=== PATIENT | female | born 1945 | race Caucasian/White ===

== ENCOUNTER 2018-07-22 20:11 | Emergency (ER) | payer MEDICARE ==
[2018-07-22] MEDS ORDERED: HYDROcodone/Acetaminophen 5/325 mg Tablet ONE (20:45)
--- NOTE | 2018-07-22 22:57 | ULT ---
RIGHT LOWER EXTREMITY VENOUS DOPPLER WITH SPECTRAL ANALYSIS AND COLOR FLOW EVALUATION 07/22/18 HISTORY: Right lower extremity pain. FINDINGS: Ma scale, color flow, doppler evaluation and spectral analysis of the right lower extremity venous structures is performed with 2D imaging. The right lower extremity common femoral, superficial femora l, popliteal, posterior tibial, and most proximal greater saphenous and profunda femoral veins are im aged. There is normal lumen compressibility, flow and augmentation in the visualized deep venous stru ctures of the right lower extremity. IMPRESSION: No evidence of a DVT involving the visualized deep venous structures right lower extremity. POS: [facility]
== END 2018-07-23 00:30 ==
LOC: ERS 20:11
DX: M79.604 Pain in right leg (principal); M19.90 Unspecified osteoarthritis, unspecified site; K21.9 Gastro-esophageal reflux disease without esophagitis; E78.5 Hyperlipidemia, unspecified; F32.9 Major depressive disorder, single episode, unspecified; E03.9 Hypothyroidism, unspecified; I10 Essential (primary) hypertension; Z86.73 Personal history of transient ischemic attack (TIA), and cerebral infarction without residual deficits; Z79.899 Other long term (current) drug therapy; Z79.82 Long term (current) use of aspirin

== ENCOUNTER 2018-08-26 13:02 | Outpatient (CLI) | payer MEDICARE ==
--- NOTE | 2018-08-26 15:21 | MRI ---
MRI LUMBAR SPINE WITHOUT CONTRAST: HISTORY: Acute right-sided low back pain. Sciatica. COMPARISON: None. TECHNIQUE: MRI lumbar spine is performed without intravenous Gadolinium administration. Multisequential, multip lanar imaging is performed. FINDINGS: 2.3 mm of anterolisthesis of L1 upon L2. There is no significant STIR hyperintensity to suggest vert ebral body edema or ligamentous injury. There is appropriate T1 marrow signal intensity of the lumba r vertebrae. No evidence of fracture. There are type II Modic changes at L5-S1. Appropriate signal intensity of the psoas muscles and solid organs. Conus medullaris terminates at the mid T12 level. T12-L1: Central disk protrusion. Moderate central canal stenosis. Right neural foramen is patent. Mild left foraminal narrowing. L1-L2: Adequate disk hydration. Generalized disk bulge, ligamentum flavum thickening, and facet hyp ertrophy result in mild central canal stenosis. Neural foramen are patent. L2-L3: Moderate loss of disk space height. Broad-based disk bulge, ligamentum flavum thickening, an d facet hypertrophy result in mild to moderate central canal stenosis. Mild to moderate right and mo derate left foraminal narrowing. L3-L4: Desiccation with mild loss of disk space height. Broad-based disk bulge does not cause any s ignificant central canal stenosis. There is bilateral facet hypertrophy. Mild bilateral foraminal n arrowing. L4-L5: Desiccation with moderate loss of disk space height. There is a broad-based disk bulge witho ut any significant stenosis of the thecal sac. Narrowing of both subarticular zones, left greater th an right. There is mass effect without obscuration of traversing left L5 nerve root. Bilateral face t hypertrophy. Moderate bilateral neural foraminal narrowing. L5-S1: Severe loss of disk space height. Generalized disk bulge with mild stenosis of the thecal sa c. Narrowing of both subarticular zones secondary to disk material and posterior element hypertrophy . There is mass effect without obscuration of either traversing S1 nerve root. Moderate bilateral f oraminal narrowing. IMPRESSION: Degenerative changes of the lumbar spine as above. POS: [facility]
== END 2018-08-26 13:03 | disposition home or self-care (01) ==
LOC: BICMRI 13:02
PROVIDERS: ATTEND Family Medicine
DX: M54.41 Lumbago with sciatica, right side (principal); M47.816 Spondylosis without myelopathy or radiculopathy, lumbar region
CPT/HCPCS: 72148

== ENCOUNTER 2018-09-07 16:58 | Observation (INO) | payer MEDICARE ==
[2018-09-07 17:46] LABS: #Lymphocytes 2.3 thou/uL (1.20-3.40); #Monocytes 1.4 thou/uL (0.11-0.59); %Basophils 0.3 % (0.0-1.0); %Eosinophils 0.5 % (0.0-10.0); %Lymphocytes 21.6 % (21.0-51.0); %Monocytes 12.5 % (0.0-10.0); %Neutrophils 65.1 % (42.0-75.0); Mean Corpuscular HGB CONC 31.9 g/dL (32.0-36.0); Mean Corpuscular Hemoglobin 31.9 pg (27.0-31.0); Mean Corpuscular Volume 99.8 fL (78.0-98.0); Mean Platelet Volume 7.2 fL (7.4-10.4); Platelet Count 341 thou/uL (130-400); RBC Distribution Width 12.2 % (11.5-14.5); Red Blood Cell (RBC) Count 3.75 mill/uL (4.20-5.40); White Blood Cell (WBC) Count 10.8 thou/uL (4.8-10.8)
[2018-09-07 18:01] LABS: Bilirubin Negative (Negative); Blood, Urine Negative (Negative); Clarity CLOUDY (Clear); Glucose, Urine (Dipstick) Negative (Negative); Leukocyte Small (Negative); Nitrite Negative (Negative); Protein, Urine (Dipstick) Trace mg/dL (Neg-Trace); Specific Gravity, Urine 1.021 (1.002-1.036)
[2018-09-07 18:03] LABS: Pathc Cast-AUWi Flag 0.85 (0-2.49); Squamous Epithelial None Seen HPF (0-3); WBC/HPF 21-50 HPF (0-3)
[2018-09-07 18:05] LABS: Yeast-AUWi Flag 82.4 (0-25.0)
[2018-09-07 18:07] LABS: ALT (SGPT) 11 U/L (8-55); AST (SGOT) 13 U/L (5-34); Albumin 3.8 g/dL (3.4-4.8); Alkaline Phosphatase 102 U/L (40-150); Anion Gap 15 mmol/L (10-20); BUN (Urea Nitrogen) 9 mg/dL (9.8-20.1); Bilirubin, Total 0.3 mg/dL (0.2-1.2); CRP (Inflammatory) 7.45 mg/dL (= or < 0.5); Calc. Creatinine Clearance 0 mL/min (70-130); Calcium 9.2 mg/dL (7.8-10.44); Carbon Dioxide 26 mmol/L (23-31); Chloride 103 mmol/L (98-107); Estimated GFR-MDRD 84; Glucose 78 mg/dL (83-110); Potassium 3.1 mmol/L (3.5-5.1); Protein, Total 7.8 g/dL (6.0-8.3); Sodium 141 mmol/L (136-145)
[2018-09-07 18:14] LABS: Bacteria/HPF 3+ HPF (None Seen); Hyaline Casts/LPF NONE SEEN LPF (0-3 Hyaline); RBC/HPF None Seen HPF (0-3); Yeast-All Forms None Seen HPF (None Seen)
[2018-09-07] MEDS ORDERED: Lidocaine 1% w/Epinephrine 1:100K 20 ML VIAL ONE (18:35)
--- NOTE | 2018-09-07 18:49 | RAD ---
FOUR VIEWS RIGHT KNEE: 09/07/18 HISTORY: Pain. Symptoms are worsening. COMPARISON: None. FINDINGS: There is a suprapatellar effusion. Joint spaces appear to be preserved. There is a lucency involving the proximal tibia. Questionable irregularity involving the lateral tibial plateau. Possibility of a nondisplaced fracture cannot be excluded. There does also appear to be some sclerosis along the media l tibial plateau further supporting this supposition. IMPRESSION: Possible injury involving the proximal tibia. MRI is recommended. POS: [facility]
[2018-09-07] MEDS ORDERED: Phenazopyridine HCl 97.5 MG TABLET PO SCH (19:30)
[2018-09-07] MEDS ORDERED: Sodium Chloride 0.9% 100 ML ONE (19:32)
[2018-09-07] MEDS ORDERED: cefTRIAXone\\ROCEPHIN 2 GM VIAL ONE (19:32)
[2018-09-07 20:33] LABS: BF Color Yellow; Body Fluid Source Synovial Fluid; Clarity Hazy (Clear); RBC Count-Automated 14000 /cumm; Tube # 1; WBC/NonHematic-Auto 5540 /cumm
[2018-09-07] MEDS ORDERED: Acetaminophen 325 MG TAB ONE (20:53)
[2018-09-07 21:16] LABS: BF Segmented Neutrophils 78 %; Cell Count Non Hematic 18 %; Lymphocytes 4 %
[2018-09-07] MEDS ORDERED: Loperamide HCl 2 MG CAP PO PRN (23:27)
[2018-09-07] MEDS ORDERED: Senokot S 8.6-50 MG TAB PO PRN (23:27)
[2018-09-07] MEDS ORDERED: Ondansetron ODT 4 MG TAB PO PRN (23:27)
[2018-09-07] MEDS ORDERED: Diabetic Tussin 200 MG/10 ML UDCUP PO PRN (23:27)
[2018-09-07] MEDS ORDERED: Artificial Tears 18 DROP/0.9 ML EA EYE PRN (23:27)
[2018-09-07] MEDS ORDERED: Zolpidem Tartrate 5 MG TAB PO PRN (23:27)
[2018-09-07] MEDS ORDERED: Sodium Chloride 0.65% Nasal 44 ML BOT EA NARE PRN (23:27)
[2018-09-07] MEDS ORDERED: Calcium Carbonate 500 MG ChewTAB PO PRN (23:27)
[2018-09-07] MEDS ORDERED: Bisacodyl 10 MG SUPP PR PRN (23:27)
[2018-09-07] MEDS ORDERED: Ondansetron PF 4 MG/2 ML Vial IVP PRN (23:27)
[2018-09-07] MEDS ORDERED: Eucerin (Mineral Oil/Petrolatum,White) 30 gm Jar TOP PRN (23:27)
[2018-09-07] MEDS ORDERED: Cepastat Lozenges 1 LOZ PO PRN (23:27)
[2018-09-07] MEDS ORDERED: Loratadine 10 MG TAB PO PRN (23:27)
[2018-09-07] MEDS ORDERED: hydrALAZINE 20 MG/ML VIAL SLOW IVP PRN (23:27)
[2018-09-08] MEDS: Sodium Chloride 0.9% 1,000 ML IV SCH ×3 (00:28→20:03)
[2018-09-08] MEDS: HYDROcodone/Acetaminophen 5/325 mg Tablet PO PRN ×4 (00:33→21:21)
[2018-09-08] MEDS ORDERED: Potassium Chloride 20 MEQ TAB PO SCH (00:45)
[2018-09-08 00:50] VITALS: BMI 22.4
[2018-09-08] MEDS: Acetaminophen 325 MG TAB PO PRN (02:05)
--- NOTE | 2018-09-08 02:11 | HP ---
PRIMARY CARE PHYSICIAN: Dr. Jeimy Mccormick. REASON FOR ADMISSION: Right knee pain, urinary tract infection. HISTORY OF PRESENT ILLNESS: A 73-year-old female, who lives alone at home. She was having right knee pain since Wednesday. The patient was having difficulty walking. Pain was gradually getting worse. Her intensity of pain was about 8/10. The patient denies any trauma. The patient was having subjective warm feeling, but she did not measure temperature. She was feeling her knee was hot and tender. The patient was trying some pain medications without any improvement and that is why finally with the help of neighbor, the patient decided to go to emergency room. In the emergency room, the patient had right knee arthrocentesis and fluid was removed. In the emergency room, the patient was having T maximum of 101. The patient did not have any UTI symptoms, though her urinalysis was consistent with UTI. The patient was given Rocephin 2 g, pyridium, and Tylenol, and subsequently, she is admitted to medical floor. The patient had an x-ray which showed some abnormality over proximal tibia, and MRI was recommended. REVIEW OF SYSTEMS: CONSTITUTIONAL: Negative for weight loss or gain, ability to conduct usual activities. SKIN: Negative for rash, itching. EYES: Negative for double vision, pain. ENT/MOUTH: Negative for nose bleeding, neck stiffness, pain, tenderness. CARDIOVASCULAR: Negative for palpitations, dyspnea on exertion, orthopnea. RESPIRATORY: Negative for shortness of breath, wheezing, cough, hemoptysis, fever or night sweats. GASTROINTESTINAL: Negative for poor appetite, abdominal pain, heartburn, nausea, vomiting, constipation, or diarrhea. GENITOURINARY: Negative for urgency, frequency, dysuria, nocturia. MUSCULOSKELETAL: Negative for pain, swelling. NEUROLOGIC/PSYCHIATRIC: Negative for anxiety, depression. ALLERGY/IMMUNOLOGIC: Negative for skin rash, bleeding tendency. Please see my HPI for pertinent positives and negatives. All other review of systems reviewed and negative except as mentioned in HPI. PAST MEDICAL HISTORY: Osteoarthritis, peripheral neuropathy, history of CVA/TIA, hypothyroidism, hypertension, gastroesophageal reflux disease, and dyslipidemia. PAST SURGICAL HISTORY: Right femur surgery, back surgery. PAST PSYCHIATRIC HISTORY: Anxiety and depression. SOCIAL HISTORY: The patient lives at [facility]. No history of tobacco, alcohol, or illicit drug abuse. FAMILY HISTORY: Positive for cancer, but no family history of coronary artery disease or stroke. ALLERGIES: NO KNOWN DRUG ALLERGIES. CURRENT HOME MEDICATIONS: 1. Lovastatin 40 mg p.o. q.h.s. 2. Metoprolol succinate 25 mg p.o. daily. 3. Nifedipine 90 mg daily. 4. Gabapentin 600 mg three times daily. 5. Plavix 75 mg daily. 6. Paxil 40 mg daily. 7. Aspirin 81 mg daily. 8. Lisinopril 20 mg twice daily. 9. Vitamin B complex one capsule daily. 10. Tylenol No.3 one tablet q.8 hourly p.r.n. 11. Flexeril 5 mg at bedtime. 12. Iron one tablet daily. 13. Clonidine 0.1 mg p.r.n. for blood pressure more than 160. EMERGENCY ROOM COURSE: The patient is given Tylenol, Pyridium, and Rocephin 2 g. PHYSICAL EXAMINATION: VITAL SIGNS: On arrival, temperature 101, pulse 89, blood pressure 180/82, saturation 97% on room air. Weight 64 kg. GENERAL: The patient is currently alert, awake, no obvious acute distress. HEENT: Head; normocephalic and atraumatic. Eyes; pupils are round and reactive to light. Extraocular muscles are intact. ENT: Oropharynx within normal limits. Moist mucous membranes. No oral lesion. No pharyngeal erythema. No exudate. NECK: Supple. No JVD. No thyromegaly. No carotid bruit. LUNGS: Clear to auscultation without any rhonchi or rales. CARDIAC: S1 and S2 regular. No murmur. No gallop. No rub. ABDOMEN: Soft. Bowel sounds present. Nontender. Nondistended. No organomegaly. No mass. No suprapubic tenderness. BACK: Unremarkable. No CVA tenderness. EXTREMITIES: Upper extremities; passive movement of all joints are normal. Lower extremities, right knee effusion noted, right knee swollen and tenderness with warmth noted, no erythema. Distal pulsations are intact. NEUROLOGIC: Nonfocal examination. SKIN: No skin rash. HEMATOLOGICAL: No lymphadenopathy. SIGNIFICANT LABORATORY DATA: X-ray knee showing suprapatellar effusion, joint space normal, lucency in proximal tibia. CBC; WBC 10.8, hemoglobin 12.0, platelet 341. BMP; sodium 141, potassium 3.1, chloride 103, carbon dioxide 26, anion gap 15, BUN 9, creatinine 0.69, glucose 78, calcium 9.2. LFT; AST 13, ALT 11, alkaline phosphatase 102, albumin 3.8. CRP 7.45. Urinalysis, leukocyte esterase small, and bacteria 3+. Synovial fluid; WBC count 5540, RBC 14,000, neutrophil percent is 78%. ASSESSMENT AND PLAN: 1. Acute right knee pain with right knee effusion, status post knee arthrocentesis, synovial fluid. WBC count 5540 with CRP 7.45, consistent with inflammatory process, less likely infectious etiology given intensity of WBC count, but given fever, we need to exclude that possibility. Orthopedic will be consulted for their opinion. We will follow up on crystal result. At this point, empirically I will start Toradol 15 mg IV q.6 hourly p.r.n. for pain and colchicine 0.6 mg twice daily. At the same time, the patient will be kept on Rocephin 2 g IV daily. We will follow up on culture result. The patient also has associated abnormality on x-ray over tibia and that is why Orthopedics will give opinion about that. If needed, we will obtain MRI of the knee. 2. Urinary tract infection. The patient will be given Rocephin 2 g and will follow up on urine culture results. 3. Hypokalemia. We will replace potassium with potassium 40 mEq p.o. one time dose. 4. The patient has underlying chronic problem of hypertension, dyslipidemia, peripheral neuropathy, coronary artery disease, history of CVA. All problems are stable at this point, and after verification of patient's home medication, we will resume all home medication. 5. DVT prophylaxis. Not needed because we are expecting discharge soon. 6. Gastrointestinal prophylaxis. Pepcid 20 mg p.o. b.i.d. 7. Code status. The patient is full code. DISPOSITION PLAN: Based on clinical course and orthopedic recommendation. Job ID: [id number]
[2018-09-08 07:56] LABS: #Lymphocytes 1.7 thou/uL (1.20-3.40); #Monocytes 1.1 thou/uL (0.11-0.59); #Neutrophils 5.6 thou/uL (1.40-6.50); %Basophils 0.4 % (0.0-1.0); %Eosinophils 0.6 % (0.0-10.0); %Lymphocytes 19.7 % (21.0-51.0); %Neutrophils 66.4 % (42.0-75.0); Hemoglobin 11.4 g/dL (12.0-16.0); Mean Corpuscular HGB CONC 32.5 g/dL (32.0-36.0); Mean Corpuscular Hemoglobin 32.1 pg (27.0-31.0); Mean Corpuscular Volume 98.8 fL (78.0-98.0); Mean Platelet Volume 7.3 fL (7.4-10.4); Platelet Count 308 thou/uL (130-400); Red Blood Cell (RBC) Count 3.55 mill/uL (4.20-5.40); White Blood Cell (WBC) Count 8.4 thou/uL (4.8-10.8)
[2018-09-08] MEDS: Famotidine 20 MG TAB PO SCH ×2 (08:03→20:03)
[2018-09-08] MEDS: NIFEdipine XL 90 MG TAB PO SCH (08:03)
[2018-09-08] MEDS: Colchicine 0.6 MG TAB PO SCH ×2 (08:03→20:03)
[2018-09-08] MEDS: Stress 600 With Zinc 1 TAB PO SCH (08:04)
[2018-09-08] MEDS: Gabapentin 300 MG CAP PO SCH ×3 (08:05→20:03)
[2018-09-08] MEDS: Lisinopril 20 MG TAB PO SCH ×2 (08:05→20:03)
[2018-09-08] MEDS: Aspirin 81 mg Enteric Coated Tablet PO SCH (08:05)
[2018-09-08] MEDS: Ketorolac Tromethamine 30 MG/ML VIAL IVP PRN ×3 (08:06→20:07)
[2018-09-08] MEDS: Clopidogrel Bisulfate 75 MG TAB PO SCH (08:06)
[2018-09-08] MEDS: Atorvastatin Calcium 10 MG TAB PO SCH (08:06)
[2018-09-08] MEDS: PARoxetine 20 MG TAB PO SCH (08:06)
[2018-09-08 08:19] LABS: ALT (SGPT) 8 U/L (8-55); AST (SGOT) 11 U/L (5-34); Albumin 3.4 g/dL (3.4-4.8); Alkaline Phosphatase 86 U/L (40-150); Anion Gap 14 mmol/L (10-20); BUN (Urea Nitrogen) 7 mg/dL (9.8-20.1); Bilirubin, Total 0.4 mg/dL (0.2-1.2); Calc. Creatinine Clearance 84 mL/min (70-130); Carbon Dioxide 24 mmol/L (23-31); Chloride 106 mmol/L (98-107); Estimated GFR-MDRD Greater than 90; Globulin 3.4 g/dL (2.4-3.5); Glucose 107 mg/dL (83-110); Potassium 3.2 mmol/L (3.5-5.1); Protein, Total 6.8 g/dL (6.0-8.3); Sodium 141 mmol/L (136-145)
[2018-09-08] MEDS ORDERED: VITAMIN B COMPLEX PO SCH (09:00)
[2018-09-08] MEDS ORDERED: Non-Formulary Item 1 EACH (Lovastatin [Lovastatin] 40 MG) PO SCH (09:00)
--- NOTE | 2018-09-08 10:11 | CON ---
DATE OF CONSULTATION: CHIEF COMPLAINT: Right knee pain. HISTORY OF PRESENT ILLNESS: Ms. Pedraza is a 73-year-old female who lives in a nursing facility. She reports that over the last 2 to 3 days, she began having increasing knee pain. Her knee pain became severe yesterday. She was transferred from her facility to the emergency department. She was found to have a large effusion of the knee. She had a knee aspirate. This aspirate was sent for cell count, which show 5000 white blood cells. Crystal analysis is pending. She also has been diagnosed with urinary tract infection. She has been started on intravenous antibiotics. She has been admitted to the hospital. She denies any fall or trauma to the knee. REVIEW OF SYSTEMS: Positive for right knee pain. The patient is uncomfortable lying in bed. Otherwise, negative review of systems. PAST MEDICAL HISTORY: Osteoarthritis, peripheral neuropathy, history of CVA, hypothyroidism, hypertension, GERD, hyperlipidemia. PAST SURGICAL HISTORY: Previous lumbar back surgery as well as right femur fracture surgery. PSYCHIATRIC HISTORY: Anxiety, depression, and dementia. SOCIAL HISTORY: The patient lives in [place] at an assisted living facility. No tobacco, alcohol, or drug use. FAMILY MEDICAL HISTORY: Noncontributory. ALLERGIES: NO KNOWN DRUG ALLERGIES. PHYSICAL EXAMINATION: VITAL SIGNS: Temperature 98.8, pulse is 86, respiratory rate 16, oxygen saturation 96%, and blood pressure is 169/80. GENERAL: She is lying supine. She is uncomfortable at rest. HEENT: Normocephalic, atraumatic. RESPIRATORY: The patient is breathing comfortably. MUSCULOSKELETAL: The right lower extremity has a large effusion of the right knee. She has pain with motion. There is increased warmth to touch. No erythema. Skin is intact. No evidence of trauma. No ecchymosis. She is able to flex and extend the foot and ankle. IMAGES: X-rays of the right knee demonstrate some evidence of osteopenia with a somewhat mottled appearance to the bone. There is a possible lateral tibial plateau occult fracture, although this is poorly visualized. She has mild osteoarthritis and calcification of the meniscus. IMPRESSION: Inflammatory process of right knee. PLAN: At this point, it does not appear that the patient has an infection given that her white blood cell count of the synovial fluid was only 5000. Crystal analysis is pending, this could represent a gout flare. I would like to order a CT scan of the knee to evaluate for lateral tibial plateau insufficiency type fracture. I do not think she will be able to tolerate an MRI well given her dementia as well as discomfort. We will follow up on CT scan as well as crystal analysis. She can mobilize as tolerated on the knee for now. Job ID: [id number]
--- NOTE | 2018-09-08 10:25 | CT ---
CT RIGHT KNEE WITHOUT CONTRAST: HISTORY: Questionable fracture. COMPARISON: None. FINDINGS: There is a large suprapatellar joint effusion. There is chondrocalcinosis of the medial and lateral menisci. Bones are severely demineralized, especially around the periarticular region of the femoral condyles and the tibial plateaus. There is a nondisplaced sagittal split fracture of the lateral tibial plate au actually best seen on the axial image 64 only involving the epiphysis above the physeal scar. No other fracture is appreciated. Mild tricompartmental joint space narrowing on these [id number] aring images. Moderate vascular calcifications. IMPRESSION: Nondisplaced sagittal split fracture of the lateral tibial plateau involving approximately 50% of the articular surface axial image 64 which ends at the physeal scar. No significant articular surface d epression. POS: [facility]
[2018-09-08] MEDS: Acetaminophen/Codeine 30-300mg Tablet PO PRN (10:50)
--- NOTE | 2018-09-08 12:12 | PDOC.PN ---
- Subjective Encounter Start Date: 09/08/18 Encounter Start Time: 12:07 Patient seen and examined, states her right knee pain is improved, no other issues. All questions answered, no family at bedside. - Objective Resuscitation Status - Order Detail: 09/07/18 22:05 Resuscitation Status Routine Resuscitation Status: FULL: Full Resuscitation Vital Signs & Weight: Vital Signs (12 hours) Temp Pulse Resp BP BP Pulse Ox 09/08/18 08:03 86 09/08/18 07:27 98.8 F 86 16 169/80 H 96 09/08/18 05:15 98.3 F 86 16 161/72 H 96 Weight Weight 139 lb 3.2 oz I&O: 09/07/18 09/08/18 09/09/18 06:59 06:59 06:59 Intake Total 1050 Balance 1050 Result Diagrams: 09/08/18 07:39 09/08/18 07:38 Phys Exam - Physical Examination Constitutional: NAD HEENT: PERRLA, moist MMs, sclera anicteric Neck: no nodes, no JVD, supple Respiratory: no wheezing, no rales, no rhonchi Cardiovascular: RRR, no significant murmur, no rub Gastrointestinal: soft, non-tender, no distention Musculoskeletal: no edema, pulses present right knee joint swollen Dx/Plan (1) Inflammatory arthritis Code(s): M19.90 - UNSPECIFIED OSTEOARTHRITIS, UNSPECIFIED SITE Status: Acute (2) Swelling of right knee joint Code(s): M25.461 - EFFUSION, RIGHT KNEE Status: Acute (3) Hypertension Code(s): I10 - ESSENTIAL (PRIMARY) HYPERTENSION Status: Acute - Plan * given 5000 WBC count, likely inflammatory joint effusion, patient also had tripped and fell and had trauma to the site * nondisplaced tibial plateau fracture * ortho evaluation pending, will likely immobilize joint for a fixed time period ? * synovial fluid analysis pending * monitor for now * DC plans in AM with antiinflammatories if work up negative and if ok with ortho * case and plan d/w patient at length, she understood and agreed with this plan.
[2018-09-08] MEDS ORDERED: cefTRIAXone\\ROCEPHIN 2 GM in Sodium Chloride 0.9% 100 ML IVPB SCH (19:00)
[2018-09-08] MEDS ORDERED: Cyclobenzaprine 10 MG TAB PO SCH (21:00)
[2018-09-09] MEDS: HYDROcodone/Acetaminophen 5/325 mg Tablet PO PRN ×2 (05:30→14:58)
[2018-09-09] MEDS: Sodium Chloride 0.9% 1,000 ML IV SCH (05:30)
[2018-09-09 06:57] LABS: #Eosinphils 0.1 thou/uL (0.0-0.7); #Lymphocytes 1.5 thou/uL (1.20-3.40); #Monocytes 0.9 thou/uL (0.11-0.59); #Neutrophils 6.4 thou/uL (1.40-6.50); %Basophils 0.5 % (0.0-1.0); %Eosinophils 1.2 % (0.0-10.0); %Lymphocytes 16.8 % (21.0-51.0); %Monocytes 9.5 % (0.0-10.0); %Neutrophils 71.9 % (42.0-75.0); Hemoglobin 11.1 g/dL (12.0-16.0); Mean Corpuscular Hemoglobin 32.8 pg (27.0-31.0); Mean Corpuscular Volume 99.7 fL (78.0-98.0); Mean Platelet Volume 7.5 fL (7.4-10.4); Platelet Count 280 thou/uL (130-400); Red Blood Cell (RBC) Count 3.39 mill/uL (4.20-5.40); White Blood Cell (WBC) Count 8.9 thou/uL (4.8-10.8)
[2018-09-09 07:10] LABS: Anion Gap 13 mmol/L (10-20); BUN (Urea Nitrogen) 9 mg/dL (9.8-20.1); Calc. Creatinine Clearance 92 mL/min (70-130); Calcium 8.9 mg/dL (7.8-10.44); Carbon Dioxide 22 mmol/L (23-31); Chloride 108 mmol/L (98-107); Estimated GFR-MDRD Greater than 90; Glucose 100 mg/dL (83-110); Potassium 3.2 mmol/L (3.5-5.1); Sodium 140 mmol/L (136-145); Uric Acid 3.8 mg/dL (2.6-6.0)
[2018-09-09] MEDS: Colchicine 0.6 MG TAB PO SCH (08:50)
[2018-09-09] MEDS: Atorvastatin Calcium 10 MG TAB PO SCH (08:50)
[2018-09-09] MEDS: Lisinopril 20 MG TAB PO SCH (08:50)
[2018-09-09] MEDS: PARoxetine 20 MG TAB PO SCH (08:51)
[2018-09-09] MEDS: Gabapentin 300 MG CAP PO SCH ×2 (08:51→14:59)
[2018-09-09] MEDS: Famotidine 20 MG TAB PO SCH (08:51)
[2018-09-09] MEDS: Acetaminophen/Codeine 30-300mg Tablet PO PRN (08:52)
[2018-09-09] MEDS: Aspirin 81 mg Enteric Coated Tablet PO SCH (08:52)
[2018-09-09] MEDS: Clopidogrel Bisulfate 75 MG TAB PO SCH (08:52)
[2018-09-09] MEDS: Ketorolac Tromethamine 30 MG/ML VIAL IVP PRN (08:54)
[2018-09-09] MEDS: Stress 600 With Zinc 1 TAB PO SCH (09:43)
[2018-09-09] MEDS: NIFEdipine XL 90 MG TAB PO SCH (09:59)
[2018-09-09 11:59] VITALS: BP 166/85; TEMP 97.3
--- NOTE | 2018-09-09 13:07 | PDOC.EVN ---
Event Note - Event Note Event Note: DC SUMMARY #[id number]
[2018-09-09] MEDS: Acetaminophen 325 MG TAB PO PRN (14:59)
--- NOTE | 2018-09-09 15:09 | DIS ---
DATE OF ADMISSION: 09/07/2018 DATE OF DISCHARGE: 09/09/2018 ADMITTING DIAGNOSES: 1. Right knee effusion as well as pain. 2. Hypertension. 3. Arthritis. DISCHARGE DIAGNOSES: 1. Right knee effusions secondary to trauma. 2. Asymptomatic bacteriuria. 3. Arthritis. HOSPITAL COURSE: This is a 73-year-old female, who was stating that she is having difficulty walking because of the right knee pain. The patient stated that about four days ago she did have a fall and injury to the knee and has noted to have pain after that incident. The patient was admitted to Internal Medicine Team, had a joint fluid analysis done, effusion was tapped. Synovial fluid analysis did not show any crystals, did not show elevated uric acid levels. White blood cell count was around 5000. No inflammatory markers were noted to be elevated. The patient was diagnosed with traumatic effusion given antibiotics for a course of three days in the hospital for her UTI as well at the point in time of discharge, the patient was given a knee immobilizer by Orthopedic surgery. She is to follow up with PCP as well as with Orthopedic Surgery within 1 to 2 weeks. Lab work was stable. The patient denied any nausea, vomiting, diarrhea, constipation, chest pain, fevers, or shortness of breath. Symptomatically improved, able to tolerate ambulation as well. DISPOSITION: Home. FOLLOWUP: Follow up with PCP and Orthopedic Surgery within 1 to 2 weeks. DIET: Low-fat, low-calorie, high fiber diet. MEDICATIONS: See MAR. CONDITION: Stable. PROGNOSIS: Good. Case and plan discussed with the patient at length. She understood and agreed with this plan. Job ID: [id number]
== END 2018-09-09 15:32 | disposition home or self-care (01) ==
LOC: ERS 16:58 → T4-A 21:45
PROVIDERS: ADMIT Internal Medicine; ATTEND Internal Medicine
DX: S82.144A Nondisplaced bicondylar fracture of right tibia, initial encounter for closed fracture (principal); M25.461 Effusion, right knee; N39.0 Urinary tract infection, site not specified; M17.11 Unilateral primary osteoarthritis, right knee; M85.88 Other specified disorders of bone density and structure, other site; G62.9 Polyneuropathy, unspecified; I10 Essential (primary) hypertension; I25.10 Atherosclerotic heart disease of native coronary artery without angina pectoris; E78.5 Hyperlipidemia, unspecified; E03.9 Hypothyroidism, unspecified; E87.6 Hypokalemia; F41.9 Anxiety disorder, unspecified; F32.9 Major depressive disorder, single episode, unspecified; F03.90 Unspecified dementia, unspecified severity, without behavioral disturbance, psychotic disturbance, mood disturbance, and anxiety; K21.9 Gastro-esophageal reflux disease without esophagitis; Z86.73 Personal history of transient ischemic attack (TIA), and cerebral infarction without residual deficits; Z79.02 Long term (current) use of antithrombotics/antiplatelets; Z79.82 Long term (current) use of aspirin; Z79.2 Long term (current) use of antibiotics; Z79.899 Other long term (current) drug therapy; Z98.890 Other specified postprocedural states; W19.XXXA Unspecified fall, initial encounter
CPT/HCPCS: 51701; 73564; 73700; 80048; 80053 ×2; 84550; 84560; 85025 ×3; 85652; 86140; 87040; 87070; 87077; 87086; 87205; 89051; 89060; 96361 ×2; 96365; 96366; 96375; 96376 ×2; 99285; G0378 ×2; 36415; 81003; 81015; 85060; A4353; J0696; J1885; J2001; J7050

== ENCOUNTER 2018-09-14 12:51 | Inpatient (IN) | payer MEDICARE ==
[2018-09-14] MEDS ORDERED: Morphine 4 MG/ML VIAL ONE ×3 (14:19→17:13)
--- NOTE | 2018-09-14 14:35 | RAD ---
PORTABLE CHEST ONE VIEW: Date: 09-14-18 Time: 2:15 p.m. History: Right leg swelling. Comparison: 08-06-18 FINDINGS: The heart size is normal. The lungs are well expanded without focal areas of consolidation, pneumotho races or pleural effusions. IMPRESSION: No evidence of acute process. POS: [facility]
[2018-09-14 14:45] LABS: #Eosinphils 0.1 thou/uL (0.0-0.7); #Lymphocytes 2.2 thou/uL (1.20-3.40); #Monocytes 1.2 thou/uL (0.11-0.59); #Neutrophils 8.4 thou/uL (1.40-6.50); %Basophils 0.4 % (0.0-1.0); %Eosinophils 0.7 % (0.0-10.0); %Lymphocytes 18.5 % (21.0-51.0); %Monocytes 10.1 % (0.0-10.0); %Neutrophils 70.2 % (42.0-75.0); Hemoglobin 11.5 g/dL (12.0-16.0); Mean Corpuscular HGB CONC 33.1 g/dL (32.0-36.0); Mean Corpuscular Hemoglobin 32.1 pg (27.0-31.0); Mean Corpuscular Volume 96.9 fL (78.0-98.0); Mean Platelet Volume 6.9 fL (7.4-10.4); Platelet Count 427 thou/uL (130-400); Red Blood Cell (RBC) Count 3.57 mill/uL (4.20-5.40)
[2018-09-14 14:59] LABS: ALT (SGPT) 17 U/L (8-55); AST (SGOT) 23 U/L (5-34); Albumin 3.7 g/dL (3.4-4.8); Alkaline Phosphatase 102 U/L (40-150); Anion Gap 13 mmol/L (10-20); BUN (Urea Nitrogen) 10 mg/dL (9.8-20.1); Bilirubin, Total 0.3 mg/dL (0.2-1.2); Calc. Creatinine Clearance 0 mL/min (70-130); Calcium 9.6 mg/dL (7.8-10.44); Carbon Dioxide 27 mmol/L (23-31); Chloride 105 mmol/L (98-107); Estimated GFR-MDRD Greater than 90; Globulin 3.8 g/dL (2.4-3.5); Glucose 89 mg/dL (83-110); Potassium 3.3 mmol/L (3.5-5.1); Protein, Total 7.5 g/dL (6.0-8.3); Sodium 142 mmol/L (136-145)
--- NOTE | 2018-09-14 16:16 | ULT ---
RIGHT LOWER EXTREMITY VENOUS DUPLEX EXAM: 09/14/18 HISTORY: Right lower extremity pain and swelling. History of a fracture involving lateral tibial plateau. COMPARISON: CT examination of 09/08/18. Real time color doppler evaluation of the right lower extremity from groin to calf was performed. Thi s included evaluation of common femoral, superficial and profunda femoral, saphenous, popliteal, and posterior tibial veins. This shows a patent deep venous system with normal compressibility and augme ntation. Complex fluid is seen within the joint space of the knee. Joint effusion was noted on the previous CT . IMPRESSION: No evidence of DVT of the right lower extremity. POS: [facility]
[2018-09-14] MEDS ORDERED: Fentanyl 100 MCG/2 ML VIAL ONE (17:24)
[2018-09-14] MEDS ORDERED: Potassium Chloride 20 MEQ TAB ONE (17:52)
[2018-09-14 18:13] LABS: Bilirubin Negative (Negative); Blood, Urine Negative (Negative); Clarity CLEAR (Clear); Glucose, Urine (Dipstick) Negative (Negative); Leukocyte Negative (Negative); Nitrite Negative (Negative); Protein, Urine (Dipstick) Negative (Neg-Trace); Specific Gravity, Urine 1.009 (1.002-1.036); Urobilinogen 0.2 mg/dL (0.2-1.0); pH, Urine 7.5 (5.0-9.0)
[2018-09-14] MEDS ORDERED: Lidocaine 1% w/Epinephrine 1:100K 20 ML VIAL ONE (18:56)
[2018-09-14] MEDS ORDERED: Piperacillin/Tazobactam 4.5 GM VIAL ONE (19:13)
[2018-09-14 19:59] LABS: BF Color Red; Body Fluid Source Synovial Fluid; Clarity Cloudy/Turbid (Clear); Tube # EDTA
[2018-09-14 20:00] LABS: RBC Count-Automated 47000 /cumm; WBC/NonHematic-Auto 7900 /cumm
[2018-09-14] MEDS ORDERED: Ondansetron PF 4 MG/2 ML Vial IVP PRN (20:17)
[2018-09-14] MEDS ORDERED: Ondansetron ODT 4 MG TAB SL PRN (20:17)
[2018-09-14 20:23] LABS: BF Segmented Neutrophils 71 %; Cell Count Non Hematic 26 %; Eosinophils 1 %; Lymphocytes 2 %
[2018-09-14 20:34] VITALS: BMI 23.1
[2018-09-14] MEDS ORDERED: HYDROcodone/Acetaminophen 5/325 mg Tablet PO PRN ×2 (20:47)
--- NOTE | 2018-09-14 20:55 | RAD ---
RIGHT KNEE TWO VIEWS: HISTORY: Right knee pain. COMPARISON: CT examination of the knee from 09/08/2018. Review is also made of a 09/07/2018 plain film examinati on. FINDINGS: The bones are markedly demineralized. It is difficult to compare whether this represents any change since the prior examination. Once again, a joint effusion is noted with prominent bulging of the sup rapatellar joint space, which is probably just the effusion; however, some of this is almost anterior and almost appears to be related to the quadriceps tendon, which may be thickened, or it may be that it is just being displaced by the effusion. Clinical correlation as to any findings that would sugg est a quadriceps tendon injury. Fracture described on the CT is not appreciated on plain film. There are arthritic changes of the kn ee. IMPRESSION: Severe bony demineralization and prominent joint effusion, as described above. There is soft tissue prominence in the region of the quadriceps tendon, and it may just be related to bulging related to t he effusion, but possibly some type of underlying quadriceps tendon injury is not excluded. Clinical correlation is recommended. MRI may be helpful in assessment, if this is a consideration. POS: [facility]
--- NOTE | 2018-09-14 23:47 | CON ---
DATE OF CONSULTATION: HISTORY OF PRESENT ILLNESS: We were asked by Medicine in the ER to see the patient. The patient was in the hospital earlier this month for some right knee pain. She was treated appropriately, found to have a tibial fracture, and was being very diligent about only toe-touch weightbearing, being in a wheelchair and walker, and not putting too much weight on that right lower extremity. About 5 days ago, swelling started to reoccur. She had her knee tapped on her last visit and it was fairly innocuous tap. No crystals were found. White blood cell count was very high, but again 5 days ago, she started having increased swelling to that right knee, has a fairly big effusion. The patient adamantly denies any new injuries or falls. She has been again diligent with her walker and wheelchair. Also, no fevers, chills, or body aches. PAST MEDICAL HISTORY: Positive for osteoarthritis, peripheral neuropathies, CVA, hypothyroidism, hypertension, GERD, and hyperlipidemia. PAST SURGICAL HISTORY: Lumbar/back surgeries, right hip/femur surgeries. PSYCHIATRIC HISTORY: She has some early onset of dementia. She has depression, anxiety. SOCIAL HISTORY: She recently moved to the area to an assisted living facility. She was residing in [place] a month or so ago. No alcohol, nicotine, or drug use. FAMILY MEDICAL HISTORY: Noncontributory to this visit. ALLERGIES: NO KNOWN DRUG ALLERGIES. MEDICATIONS: 1. Tylenol with Codeine. 2. Aspirin. 3. Clonidine. 4. Plavix. 5. Cyclobenzaprine. 6. Ferrous gluconate. 7. Gabapentin. 8. [place] p.r.n. as with Tylenol No. 3 p.r.n. 9. Lisinopril. 10. Lovastatin. 11. Metoprolol succinate. 12. Nifedipine. 13. Paroxetine. 14. Vitamin B complex. REVIEW OF SYSTEMS: The patient states she is very healthy. She has no current complaints other than her right knee is painful, more so with being upright and some mild pressure on it, also some tenderness to palpation in that right knee. Otherwise, rest of review of systems is negative. PHYSICAL EXAMINATION: GENERAL: Well-nourished, well-developed female, alert, pleasant, in no acute distress. Speech clear. Affect pleasant. Answers question appropriately. She is alert and oriented x3. HEENT: Normal exam. Face symmetric. Tongue midline. NECK: Supple. Trachea midline. RESPIRATORY: In no distress. EXTREMITIES: Upper extremities; equal size, shape, symmetry, normal bulk and tone. Lower extremities; equal size, shape, symmetry, normal bulk and tone with the exception of her right knee which is quite swollen, but no redness or increased warmth present. She is able to move that leg, but it is quite painful in doing so. Palpation of the knee also causes her good deal of pain. She has had some pain medications while in the ER. These are wearing off. DP and PT pulses are intact and symmetric. LABORATORY AND DIAGNOSTIC DATA: X-ray has not required yet. Labs are pending. ASSESSMENT: Right knee effusion. PLAN: I spoke with the patient at length. The plan is to do a knee aspirate. I went over the procedure with the patient. We will get her numbed up. Last time, she was not numbed and it was uncomfortable for her. Explained the risks and benefits, and she would like to have some fluid drained off it anyhow, she is amenable to go forth with the procedure. She will be admitted tonight by Medicine and we will follow her throughout her stay and tracked down her labs. Job ID: [id number]
[2018-09-14] MEDS ORDERED: Piperacillin/Tazobactam 4.5 GM in Sodium Chloride 0.9% 100 ML IVPB SCH (23:59)
[2018-09-15] MEDS: Ketorolac Tromethamine 30 MG/ML VIAL IVP PRN ×2 (00:42→15:25)
[2018-09-15] MEDS ORDERED: Calcium Carbonate 500 MG ChewTAB PO PRN (03:27)
[2018-09-15] MEDS ORDERED: hydrALAZINE 20 MG/ML VIAL SLOW IVP PRN (03:27)
[2018-09-15] MEDS ORDERED: Acetaminophen 325 MG TAB PO PRN (03:27)
[2018-09-15] MEDS ORDERED: Bisacodyl 5 MG TAB PO PRN (03:27)
[2018-09-15] MEDS ORDERED: Pharmacy to Dose 1 EACH : VANC IVPB PRN (03:42)
--- NOTE | 2018-09-15 03:47 | HP ---
PRIMARY CARE PHYSICIAN: Dr. Mccormick. CHIEF COMPLAINT: Swelling in the right knee. HISTORY OF PRESENT ILLNESS: Ms. Pedraza is a pleasant 73-year-old female, who has a history of hypertension, hypothyroidism. She also recently suffered a fall and fractured her tibia. She has had difficulty with effusions in that right knee since the fall and was just discharged from the hospital approximately a week ago with similar complaints. She says she was only at home a few days when the swelling started to reaccumulate and she says that when she woke up the morning of admission, her knee was red and hot and swollen. She was afraid that things could get worse and for this reason, she came to the ER for evaluation. She denies any fevers or chills. No nausea. No vomiting. No chest pain. No shortness of breath. No other symptoms. She denies any trauma to the area or any new fall. She says that she had been compliant with the restrictions with regard to weightbearing. She has been admitted to the hospital and Orthopedic Surgery has been consulted. REVIEW OF SYSTEMS: All systems were reviewed and are negative except for that mentioned in the history of present illness. PAST MEDICAL HISTORY: Significant for osteoarthritis, cerebrovascular accident, peripheral neuropathy, hypertension, hypothyroidism, gastroesophageal reflux disease, and dyslipidemia. PAST SURGICAL HISTORY: She has had a right femur repair and back surgery. ALLERGIES: NO KNOWN DRUG ALLERGIES. SOCIAL HISTORY: She lives in [facility]. She is a nonsmoker and nondrinker. Does not use any drugs. FAMILY HISTORY: Significant for cancer. CURRENT MEDICATIONS: 1. Aspirin 81 mg daily. 2. Clonidine 0.1 patch. 3. Plavix 75 mg daily. 4. Cyclobenzaprine 5 mg at bedtime. 5. Iron gluconate 256 mg daily. 6. Gabapentin 600 mg t.i.d. 7. [place] 10/325 one tablet three times a day. 8. Lisinopril 20 mg twice daily. 9. Lovastatin 40 mg daily. 10. Nifedipine XL 90 mg daily. 11. Paroxetine 40 mg daily. 12. Super B-50 complex one tablet daily. PHYSICAL EXAMINATION: GENERAL: She is alert and oriented. She appears to be in no acute distress. She is well developed and well nourished. VITAL SIGNS: Blood pressure was 149/69, heart rate 85, respiratory rate of 18, temperature is 97.8, and O2 saturation is 95% on room air. HEENT: Pupils are equal, round, and reactive. Extraocular muscles are intact. Her sclerae are anicteric. Throat, no erythema, no exudates. NECK: No adenopathy. No bruits. LUNGS: Clear to auscultation. There is no wheezing. No rales. No rhonchi. CARDIOVASCULAR: She has a normal S1, S2. There is no S3 or S4. No murmurs, clicks, or rubs. ABDOMEN: Obese. It is soft. It is nontender and nondistended. Positive for bowel sounds. No rebound or guarding. EXTREMITIES: She has significant swelling in the right knee. I did not appreciate any erythema, but the area is warm and fluctuant. She has good dorsalis pedis pulses bilaterally. NEUROLOGIC: Her cranial nerves 2 through 12 are grossly intact. Muscle strength is 5/5 in both her upper and lower extremities. SKIN AND INTEGUMENT: No significant skin changes. No rash. LABORATORY RESULTS: White blood cell count 12, hemoglobin 11.5, hematocrit is 34.6, and platelet count 427. D-dimer is 5.87. Sodium is 142, potassium 3.3, chloride is 105, CO2 is 27, BUN of 10, creatinine 0.63, glucose is 89, total bilirubin 0.3. Troponin is less than 0.010. ASSESSMENT: 1. This is a 73-year-old female, who presents to the emergency room with a recurrent right knee effusion. This is status post having a traumatic injury to that right knee. She has already been seen by Orthopedic Surgery and the knee has been tapped. At least preliminary fluid results appears to be just a traumatic effusion. Does not appear to be a septic joint. However, we will go ahead and continue IV antibiotics until the culture results become available. Continue physical therapy and weightbearing as per Orthopedic recommendations. 2. Hypertension. Continue her usual antihypertensive medications as well as p.r.n's. 3. Hypothyroidism. She appears to be clinically euthyroid. We will continue her usual medications and she will be placed on DVT and GI prophylaxis. Job ID: [id number]
[2018-09-15] MEDS: Piperacillin/Tazobactam 3.375 GM in Sodium Chloride 0.9% 100 ML IVPB SCH ×3 (05:28→17:08)
[2018-09-15 07:27] LABS: #Basophils 0.1 thou/uL (0.0-0.2); #Eosinphils 0.1 thou/uL (0.0-0.7); #Lymphocytes 1.6 thou/uL (1.20-3.40); #Neutrophils 5.7 thou/uL (1.40-6.50); %Basophils 0.6 % (0.0-1.0); %Eosinophils 1.1 % (0.0-10.0); %Lymphocytes 19.2 % (21.0-51.0); %Monocytes 11.3 % (0.0-10.0); %Neutrophils 67.8 % (42.0-75.0); Hemoglobin 10.5 g/dL (12.0-16.0); Mean Corpuscular HGB CONC 33.3 g/dL (32.0-36.0); Mean Corpuscular Hemoglobin 32.3 pg (27.0-31.0); Mean Corpuscular Volume 97.1 fL (78.0-98.0); Mean Platelet Volume 6.9 fL (7.4-10.4); Platelet Count 372 thou/uL (130-400); Red Blood Cell (RBC) Count 3.24 mill/uL (4.20-5.40); White Blood Cell (WBC) Count 8.5 thou/uL (4.8-10.8)
[2018-09-15 07:43] LABS: Anion Gap 12 mmol/L (10-20); BUN (Urea Nitrogen) 9 mg/dL (9.8-20.1); Calc. Creatinine Clearance 90 mL/min (70-130); Calcium 8.8 mg/dL (7.8-10.44); Carbon Dioxide 27 mmol/L (23-31); Chloride 106 mmol/L (98-107); Estimated GFR-MDRD Greater than 90; Glucose 104 mg/dL (83-110); Sodium 142 mmol/L (136-145)
[2018-09-15 07:47] LABS: Potassium 2.8 mmol/L (3.5-5.1)
--- NOTE | 2018-09-15 08:14 | OP ---
DATE OF PROCEDURE: 09/14/2018 PROCEDURE: Joint aspiration. The patient explained the risks and benefits of doing a knee aspirate. She had this a few weeks ago. She understands the risks and complications that can happen and she is given verbal authorization to go forth with the joint aspirate. I prepped the patient's leg with copious Betadine. I then used 1% lidocaine with epinephrine, 6 mL of approximately used to inject around the lateral base of the patella. The patient tolerated this well. I then donned sterile gloves, re-prepped the knee with copious Betadine, and used a 10 mL in 18-gauge needle. I was able to get out some red tinged fluid, not of any thickness. I then withdrew a total of 29 mL, 20 of which were sent to the lab. The nurse taking care of the patient opened the syringes sterilely for me. I then withdrew the needle, dressed with a sterile dressing, and sent labs off complete blood cell count, Gram stain, culture, protein, glucose, and cell count. The patient tolerated the procedure well. Job ID: [id number]
[2018-09-15 08:21] LABS: Magnesium 1.4 mg/dL (1.6-2.6); Phosphorus 3.6 mg/dL (2.3-4.7)
[2018-09-15] MEDS: Vancomycin HCl 1 GM in Premix Bag 1 BAG IVPB SCH ×2 (08:47→19:41)
[2018-09-15] MEDS: Potassium Chloride 20 MEQ TAB PO SCH ×3 (08:47→15:25)
[2018-09-15] MEDS: Lisinopril 20 MG TAB PO SCH ×2 (08:48→19:46)
[2018-09-15] MEDS: Aspirin Chewable 81 MG TAB PO SCH (08:48)
[2018-09-15] MEDS: Atorvastatin Calcium 10 MG TAB PO SCH (08:48)
[2018-09-15] MEDS: PARoxetine 20 MG TAB PO SCH (08:48)
[2018-09-15] MEDS: Folic Acid/Vit B Comp W-C PO SCH (08:48)
[2018-09-15] MEDS: Clopidogrel Bisulfate 75 MG TAB PO SCH (08:49)
[2018-09-15] MEDS: Gabapentin 300 MG CAP PO SCH ×3 (08:49→19:44)
[2018-09-15] MEDS: NIFEdipine XL 90 MG TAB PO SCH (08:50)
[2018-09-15] MEDS: HYDROcodone/Acetaminophen 5/325 mg Tablet PO PRN (08:55)
[2018-09-15] MEDS ORDERED: Magnesium Sulfate 4 GM in Sodium Chloride 0.9% 250 ML 250 ML IVPB SCH (09:00)
[2018-09-15] MEDS ORDERED: Enoxaparin Sodium 40 MG/0.4 ML SYRINGE SC SCH (09:00)
[2018-09-15 11:55] LABS: Fluid, Protein 3.9 g/dL (Not Available)
[2018-09-15] MEDS: Cyclobenzaprine 10 MG TAB PO SCH (19:44)
[2018-09-16] MEDS: Piperacillin/Tazobactam 3.375 GM in Sodium Chloride 0.9% 100 ML IVPB SCH ×2 (00:17→05:17)
[2018-09-16] MEDS: HYDROcodone/Acetaminophen 5/325 mg Tablet PO PRN ×2 (05:31→10:49)
[2018-09-16] MEDS ORDERED: Milk Of Magnesia 30 ML UDCUP PO PRN (08:43)
[2018-09-16] MEDS ORDERED: Polyethylene Glycol 3350 17 GM Packet PO PRN (08:43)
[2018-09-16] MEDS ORDERED: Eucerin (Mineral Oil/Petrolatum,White) 30 gm Jar TOP PRN (08:43)
[2018-09-16] MEDS: PARoxetine 20 MG TAB PO SCH (08:54)
[2018-09-16] MEDS: Folic Acid/Vit B Comp W-C PO SCH (08:54)
[2018-09-16] MEDS: Atorvastatin Calcium 10 MG TAB PO SCH (08:54)
[2018-09-16] MEDS: Lisinopril 20 MG TAB PO SCH ×2 (08:55→20:26)
[2018-09-16] MEDS: Aspirin Chewable 81 MG TAB PO SCH (08:56)
[2018-09-16] MEDS: Clopidogrel Bisulfate 75 MG TAB PO SCH (08:56)
[2018-09-16] MEDS: Gabapentin 300 MG CAP PO SCH ×3 (08:56→20:26)
[2018-09-16] MEDS: NIFEdipine XL 90 MG TAB PO SCH (08:56)
[2018-09-16] MEDS: Acetaminophen 325 MG TAB PO SCH ×3 (08:58→20:24)
[2018-09-16] MEDS: traMADol HCl 50 MG TAB PO SCH ×3 (09:00→20:27)
[2018-09-16] MEDS: Senokot S 8.6-50 MG TAB PO SCH ×2 (09:00→20:26)
[2018-09-16 09:26] LABS: #Eosinphils 0.1 thou/uL (0.0-0.7); %Basophils 0.1 % (0.0-1.0); %Eosinophils 1.1 % (0.0-10.0); %Lymphocytes 19.7 % (21.0-51.0); %Monocytes 9.5 % (0.0-10.0); %Neutrophils 69.6 % (42.0-75.0); Mean Corpuscular HGB CONC 33.2 g/dL (32.0-36.0); Mean Corpuscular Hemoglobin 32.5 pg (27.0-31.0); Mean Corpuscular Volume 97.7 fL (78.0-98.0); Mean Platelet Volume 6.8 fL (7.4-10.4); Platelet Count 387 thou/uL (130-400); RBC Distribution Width 11.9 % (11.5-14.5); Red Blood Cell (RBC) Count 3.39 mill/uL (4.20-5.40); White Blood Cell (WBC) Count 10.1 thou/uL (4.8-10.8)
[2018-09-16 09:47] LABS: Anion Gap 13 mmol/L (10-20); BUN (Urea Nitrogen) 7 mg/dL (9.8-20.1); Calc. Creatinine Clearance 80 mL/min (70-130); Calcium 8.8 mg/dL (7.8-10.44); Carbon Dioxide 25 mmol/L (23-31); Chloride 105 mmol/L (98-107); Estimated GFR-MDRD 90; Glucose 137 mg/dL (83-110); Magnesium 1.7 mg/dL (1.6-2.6); Phosphorus 3.4 mg/dL (2.3-4.7); Potassium 3.8 mmol/L (3.5-5.1); Sodium 139 mmol/L (136-145)
--- NOTE | 2018-09-16 17:57 | PDOC.PN ---
- Subjective Encounter Start Date: 09/16/18 Encounter Start Time: 08:30 Patient seen and examined for recurrent Rt knee effusion. Unable to ambulate due to significant Rt knee pain. No fever/chills. No new complaints. No overnight events - Objective Resuscitation Status - Order Detail: 09/15/18 03:22 Resuscitation Status Routine Resuscitation Status: FULL: Full Resuscitation MAR Reviewed: Yes Vital Signs & Weight: Vital Signs (12 hours) Temp Pulse Resp BP BP Pulse Ox 09/16/18 08:56 76 09/16/18 08:55 149/82 H 09/16/18 08:00 97 09/16/18 07:35 99.3 F 76 16 144/82 H 97 Weight Weight 143 lb I&O: 09/15/18 09/16/18 09/17/18 06:59 06:59 06:59 Intake Total 1000 Balance 1000 Result Diagrams: 09/16/18 09:05 09/16/18 09:05 Phys Exam - Physical Examination Constitutional: NAD Respiratory: no wheezing, no rhonchi Cardiovascular: RRR, no rub Gastrointestinal: soft, non-tender, positive bowel sounds Musculoskeletal: no edema Rt knee swelling with some warmth/tenderness/mild eythema Neurological: moves all 4 limbs Psychiatric: A&O x 3 Dx/Plan - Plan DVT proph w/SCDs 1. Recurrent Rt knee effusion with significant pain 2. Hypokalemia/Hypomagnesemia 3. HTN 4. Hypothyroidism 5. CKD 2/HLD/Mild depression - stable PLAN: Pain control with tylenol/tramadol around the clock with [place] PRN Ortho input appreciated Await Joint aspirate results DC Atbx per Ortho AM labs Microbiology 09/14/18 19:15 Synovial fluid Body Fluid Culture - Preliminary 09/14/18 17:56 Venous blood - Left Hand Blood Culture - Preliminary NO GROWTH AT 48 HOURS 09/14/18 17:50 Venous blood - Right Hand Blood Culture - Preliminary NO GROWTH AT 48 HOURS Review of Systems - Review of Systems Respiratory: negative: Cough, Dry, Shortness of Breath, Hemoptysis, SOB with Excertion, Pleuritic Pain, Sputum, Wheezing Cardiovascular: negative: chest pain, palpitations, orthopnea, paroxysmal nocturnal dyspnea, edema, light headedness, other - Medications/Allergies Allergies/Adverse Reactions: Allergies Allergy/AdvReac Type Severity Reaction Status Date / Time No Known Allergies Allergy Verified 09/08/18 01:28 Medications: Current Medications Acetaminophen (Tylenol) 650 mg PO Q4H PRN PRN Reason: Headache/Fever/Mild Pain (1-3) Acetaminophen (Tylenol) 650 mg PO TID [facility] Last Admin: 09/16/18 14:44 Dose: 650 mg Hydrocodone Bitart/Acetaminophen ([place] 5/325) 1 tab PO Q4H PRN PRN Reason: Moderate Pain (4-6) Last Admin: 09/16/18 10:49 Dose: 1 tab Aspirin (Aspirin Chewable) 81 mg PO DAILY [facility] Last Admin: 09/16/18 08:56 Dose: 81 mg Atorvastatin Calcium (Lipitor) 10 mg PO DAILY [facility] Last Admin: 09/16/18 08:54 Dose: 10 mg Bisacodyl (Dulcolax) 10 mg PO DAILYPRN PRN PRN Reason: Constipation Calcium Carbonate (Tums) 1,000 mg PO Q4H PRN PRN Reason: Heartburn or Indigestion Clopidogrel Bisulfate (Plavix) 75 mg PO DAILY [facility] Last Admin: 09/16/18 08:56 Dose: 75 mg Cyclobenzaprine HCl (Flexeril) 5 mg PO HS [facility] Last Admin: 09/15/18 19:44 Dose: 5 mg Gabapentin (Neurontin) 600 mg PO TID [facility] Last Admin: 09/16/18 14:43 Dose: 600 mg Hydralazine HCl (Apresoline) 10 mg SLOW IVP Q4H PRN PRN Reason: SBP > 180 and HR < 70 Lisinopril (Zestril) 20 mg PO BID [facility] Last Admin: 09/16/18 08:55 Dose: 20 mg Magnesium Hydroxide (Milk Of Magnesium) 30 ml PO DAILYPRN PRN PRN Reason: Constipation Metoprolol Succinate (Toprol Xl) 25 mg PO DAILY [facility] Last Admin: 09/16/18 08:55 Dose: 25 mg Mineral Oil/White Petrolatum (Eucerin Cream) 0 gm TOP BIDPRN PRN PRN Reason: Dry Skin Miscellaneous Medication (Pharmacy To Dose) 1 each IVPB PRN PRN PRN Reason: SSSI Nifedipine (Procardia Xl) 90 mg PO DAILY [facility] Last Admin: 09/16/18 08:56 Dose: 90 mg Paroxetine HCl (Paxil) 40 mg PO DAILY [facility] Last Admin: 09/16/18 08:54 Dose: 40 mg Polyethylene Glycol (Miralax) 17 gm PO DAILY PRN PRN Reason: Constipation Senna/Docusate Sodium (Senokot S) 2 tab PO BID [facility] Last Admin: 09/16/18 09:00 Dose: 2 tab Tramadol HCl (Ultram) 50 mg PO TID [facility] Last Admin: 09/16/18 14:43 Dose: 50 mg Vitamin B Complex/Vit C/Folic Acid (Nephro-Chika Tablet) 1 tab PO DAILY [facility] Last Admin: 09/16/18 08:54 Dose: 1 tab
[2018-09-16] MEDS: Cyclobenzaprine 10 MG TAB PO SCH (20:24)
[2018-09-17 07:37] LABS: #Basophils 0.1 thou/uL (0.0-0.2); #Eosinphils 0.1 thou/uL (0.0-0.7); #Lymphocytes 1.6 thou/uL (1.20-3.40); #Monocytes 1.2 thou/uL (0.11-0.59); %Basophils 0.4 % (0.0-1.0); %Eosinophils 0.7 % (0.0-10.0); %Lymphocytes 12.1 % (21.0-51.0); %Monocytes 9.2 % (0.0-10.0); %Neutrophils 77.6 % (42.0-75.0); Hemoglobin 11.3 g/dL (12.0-16.0); Mean Corpuscular HGB CONC 32.4 g/dL (32.0-36.0); Mean Corpuscular Hemoglobin 31.1 pg (27.0-31.0); Mean Platelet Volume 6.9 fL (7.4-10.4); Platelet Count 432 thou/uL (130-400); RBC Distribution Width 11.9 % (11.5-14.5); Red Blood Cell (RBC) Count 3.63 mill/uL (4.20-5.40)
[2018-09-17 07:56] LABS: Anion Gap 13 mmol/L (10-20); BUN (Urea Nitrogen) 16 mg/dL (9.8-20.1); Calc. Creatinine Clearance 78 mL/min (70-130); Calcium 9.1 mg/dL (7.8-10.44); Carbon Dioxide 24 mmol/L (23-31); Chloride 105 mmol/L (98-107); Estimated GFR-MDRD 87; Glucose 108 mg/dL (83-110); Magnesium 1.8 mg/dL (1.6-2.6); Potassium 3.7 mmol/L (3.5-5.1); Sodium 138 mmol/L (136-145)
[2018-09-17] MEDS: NIFEdipine XL 90 MG TAB PO SCH (08:01)
[2018-09-17] MEDS: Atorvastatin Calcium 10 MG TAB PO SCH (08:01)
[2018-09-17] MEDS: Gabapentin 300 MG CAP PO SCH ×3 (08:01→20:24)
[2018-09-17] MEDS: Folic Acid/Vit B Comp W-C PO SCH (08:02)
[2018-09-17] MEDS: PARoxetine 20 MG TAB PO SCH (08:02)
[2018-09-17] MEDS: traMADol HCl 50 MG TAB PO SCH ×3 (08:03→20:24)
[2018-09-17] MEDS: Clopidogrel Bisulfate 75 MG TAB PO SCH (08:03)
[2018-09-17] MEDS: Acetaminophen 325 MG TAB PO SCH ×3 (08:03→20:22)
[2018-09-17] MEDS: Lisinopril 20 MG TAB PO SCH ×2 (08:04→20:24)
[2018-09-17] MEDS: Senokot S 8.6-50 MG TAB PO SCH ×2 (08:04→20:24)
[2018-09-17] MEDS: Aspirin Chewable 81 MG TAB PO SCH (08:05)
[2018-09-17] MEDS: HYDROcodone/Acetaminophen 5/325 mg Tablet PO PRN ×3 (09:16→20:25)
--- NOTE | 2018-09-17 13:54 | PDOC.PN ---
- Subjective Encounter Start Date: 09/17/18 Encounter Start Time: 09:20 Pt seen for followup re:knee effusion. denies chest pain or shortness of breath. c/o right knee pain. - Objective Resuscitation Status - Order Detail: 09/15/18 03:22 Resuscitation Status Routine Resuscitation Status: FULL: Full Resuscitation MAR Reviewed: Yes Vital Signs & Weight: Vital Signs (12 hours) Temp Pulse Resp BP BP Pulse Ox 09/17/18 11:05 98.7 F 83 19 100/60 97 09/17/18 08:04 170/84 H 09/17/18 08:01 73 170/84 H 09/17/18 07:05 99.1 F 73 18 170/84 H 97 09/17/18 04:53 97.8 F 73 18 152/84 H 97 Weight Weight 143 lb I&O: 09/16/18 09/17/18 09/18/18 06:59 06:59 06:59 Intake Total 1000 240 Balance 1000 240 Result Diagrams: 09/17/18 07:03 09/17/18 07:03 Additional Labs: labs reviewed by me Phys Exam - Physical Examination Constitutional: NAD HEENT: moist MMs Neck: supple Respiratory: clear to auscultation bilateral Cardiovascular: RRR Gastrointestinal: soft right knee effusion Neurological: moves all 4 limbs Psychiatric: normal affect Dx/Plan (1) Swelling of right knee joint Code(s): M25.461 - EFFUSION, RIGHT KNEE Status: Acute Comment: s/p arthrocentesis, await culture (2) Hypertension Code(s): I10 - ESSENTIAL (PRIMARY) HYPERTENSION Status: Chronic Comment: controlled - Plan PT/OT, DVT proph w/SCDs * . Review of Systems - Review of Systems Cardiovascular: negative: chest pain, palpitations, orthopnea, paroxysmal nocturnal dyspnea, edema, light headedness Gastrointestinal: negative: Nausea, Vomiting, Abdominal Pain, Diarrhea, Constipation, Melena, Hematochezia Musculoskeletal: Other (knee pain) - Medications/Allergies Allergies/Adverse Reactions: Allergies Allergy/AdvReac Type Severity Reaction Status Date / Time No Known Allergies Allergy Verified 09/08/18 01:28 Medications: Current Medications Acetaminophen (Tylenol) 650 mg PO Q4H PRN PRN Reason: Headache/Fever/Mild Pain (1-3) Acetaminophen (Tylenol) 650 mg PO TID [facility] Last Admin: 09/17/18 08:03 Dose: 650 mg Hydrocodone Bitart/Acetaminophen ([place] 5/325) 1 tab PO Q4H PRN PRN Reason: Moderate Pain (4-6) Last Admin: 09/17/18 09:16 Dose: 1 tab Aspirin (Aspirin Chewable) 81 mg PO DAILY [facility] Last Admin: 09/17/18 08:05 Dose: 81 mg Atorvastatin Calcium (Lipitor) 10 mg PO DAILY [facility] Last Admin: 09/17/18 08:01 Dose: 10 mg Bisacodyl (Dulcolax) 10 mg PO DAILYPRN PRN PRN Reason: Constipation Calcium Carbonate (Tums) 1,000 mg PO Q4H PRN PRN Reason: Heartburn or Indigestion Clopidogrel Bisulfate (Plavix) 75 mg PO DAILY [facility] Last Admin: 09/17/18 08:03 Dose: 75 mg Cyclobenzaprine HCl (Flexeril) 5 mg PO HS [facility] Last Admin: 09/16/18 20:24 Dose: 5 mg Gabapentin (Neurontin) 600 mg PO TID [facility] Last Admin: 09/17/18 08:01 Dose: 600 mg Hydralazine HCl (Apresoline) 10 mg SLOW IVP Q4H PRN PRN Reason: SBP > 180 and HR < 70 Lisinopril (Zestril) 20 mg PO BID [facility] Last Admin: 09/17/18 08:04 Dose: 20 mg Magnesium Hydroxide (Milk Of Magnesium) 30 ml PO DAILYPRN PRN PRN Reason: Constipation Metoprolol Succinate (Toprol Xl) 25 mg PO DAILY [facility] Last Admin: 09/17/18 08:02 Dose: 25 mg Mineral Oil/White Petrolatum (Eucerin Cream) 0 gm TOP BIDPRN PRN PRN Reason: Dry Skin Miscellaneous Medication (Pharmacy To Dose) 1 each IVPB PRN PRN PRN Reason: SSSI Nifedipine (Procardia Xl) 90 mg PO DAILY [facility] Last Admin: 09/17/18 08:01 Dose: 90 mg Paroxetine HCl (Paxil) 40 mg PO DAILY [facility] Last Admin: 09/17/18 08:02 Dose: 40 mg Polyethylene Glycol (Miralax) 17 gm PO DAILY PRN PRN Reason: Constipation Senna/Docusate Sodium (Senokot S) 2 tab PO BID [facility] Last Admin: 09/17/18 08:04 Dose: Not Given Tramadol HCl (Ultram) 50 mg PO TID [facility] Last Admin: 09/17/18 08:03 Dose: 50 mg Vitamin B Complex/Vit C/Folic Acid (Nephro-Chika Tablet) 1 tab PO DAILY [facility] Last Admin: 09/17/18 08:02 Dose: 1 tab
[2018-09-17] MEDS: Cyclobenzaprine 10 MG TAB PO SCH (20:22)
[2018-09-18] MEDS: HYDROcodone/Acetaminophen 5/325 mg Tablet PO PRN ×3 (06:39→17:17)
[2018-09-18] MEDS: Clopidogrel Bisulfate 75 MG TAB PO SCH (09:26)
[2018-09-18] MEDS: PARoxetine 20 MG TAB PO SCH (09:26)
[2018-09-18] MEDS: Folic Acid/Vit B Comp W-C PO SCH (09:26)
[2018-09-18] MEDS: NIFEdipine XL 90 MG TAB PO SCH (09:26)
[2018-09-18] MEDS: Atorvastatin Calcium 10 MG TAB PO SCH (09:27)
[2018-09-18] MEDS: traMADol HCl 50 MG TAB PO SCH ×3 (09:27→20:17)
[2018-09-18] MEDS: Aspirin Chewable 81 MG TAB PO SCH (09:27)
[2018-09-18] MEDS: Gabapentin 300 MG CAP PO SCH ×3 (09:27→20:15)
[2018-09-18] MEDS: Lisinopril 20 MG TAB PO SCH ×2 (09:28→20:16)
[2018-09-18] MEDS: Acetaminophen 325 MG TAB PO SCH ×3 (09:28→20:14)
[2018-09-18] MEDS: Senokot S 8.6-50 MG TAB PO SCH ×2 (09:29→20:16)
--- NOTE | 2018-09-18 14:16 | PDOC.PN ---
- Subjective Encounter Start Date: 09/18/18 Encounter Start Time: 10:20 Pt seen for followup re: knee effusion. feels better in terms of pain. - Objective Resuscitation Status - Order Detail: 09/15/18 03:22 Resuscitation Status Routine Resuscitation Status: FULL: Full Resuscitation MAR Reviewed: Yes Vital Signs & Weight: Vital Signs (12 hours) Temp Pulse Resp BP BP Pulse Ox 09/18/18 12:00 98.2 F 117 H 18 107/69 98 09/18/18 09:28 153/82 H 09/18/18 09:26 90 153/82 H 09/18/18 08:04 98.8 F 90 18 152/81 H 94 L Weight Weight 143 lb I&O: 09/17/18 09/18/18 09/19/18 06:59 06:59 06:59 Intake Total 1000 640 Balance 1000 640 Result Diagrams: 09/17/18 07:03 09/17/18 07:03 Additional Labs: labs reviewed by me Phys Exam - Physical Examination Constitutional: NAD HEENT: moist MMs Neck: supple Respiratory: clear to auscultation bilateral Cardiovascular: RRR Gastrointestinal: soft R knee effusion improving Neurological: moves all 4 limbs Psychiatric: normal affect Dx/Plan (1) Swelling of right knee joint Code(s): M25.461 - EFFUSION, RIGHT KNEE Status: Acute Comment: s/p arthrocentesis, Improving, culture negative so far (2) Hypertension Code(s): I10 - ESSENTIAL (PRIMARY) HYPERTENSION Status: Chronic Comment: controlled - Plan out of bed/ambulate * . Review of Systems - Review of Systems Constitutional: negative: fever, chills, sweats, weakness, malaise Cardiovascular: negative: chest pain, palpitations, orthopnea, paroxysmal nocturnal dyspnea, edema, light headedness Musculoskeletal: Other (knee pain) - Medications/Allergies Allergies/Adverse Reactions: Allergies Allergy/AdvReac Type Severity Reaction Status Date / Time No Known Allergies Allergy Verified 09/08/18 01:28 Medications: Current Medications Acetaminophen (Tylenol) 650 mg PO Q4H PRN PRN Reason: Headache/Fever/Mild Pain (1-3) Acetaminophen (Tylenol) 650 mg PO TID [facility] Last Admin: 09/18/18 09:28 Dose: 650 mg Hydrocodone Bitart/Acetaminophen ([place] 5/325) 1 tab PO Q4H PRN PRN Reason: Moderate Pain (4-6) Last Admin: 09/18/18 11:38 Dose: 1 tab Aspirin (Aspirin Chewable) 81 mg PO DAILY [facility] Last Admin: 09/18/18 09:27 Dose: 81 mg Atorvastatin Calcium (Lipitor) 10 mg PO DAILY [facility] Last Admin: 09/18/18 09:27 Dose: 10 mg Bisacodyl (Dulcolax) 10 mg PO DAILYPRN PRN PRN Reason: Constipation Calcium Carbonate (Tums) 1,000 mg PO Q4H PRN PRN Reason: Heartburn or Indigestion Clopidogrel Bisulfate (Plavix) 75 mg PO DAILY [facility] Last Admin: 09/18/18 09:26 Dose: 75 mg Cyclobenzaprine HCl (Flexeril) 5 mg PO HS [facility] Last Admin: 09/17/18 20:22 Dose: 5 mg Gabapentin (Neurontin) 600 mg PO TID [facility] Last Admin: 09/18/18 09:27 Dose: 600 mg Hydralazine HCl (Apresoline) 10 mg SLOW IVP Q4H PRN PRN Reason: SBP > 180 and HR < 70 Lisinopril (Zestril) 20 mg PO BID [facility] Last Admin: 09/18/18 09:28 Dose: 20 mg Magnesium Hydroxide (Milk Of Magnesium) 30 ml PO DAILYPRN PRN PRN Reason: Constipation Metoprolol Succinate (Toprol Xl) 25 mg PO DAILY [facility] Last Admin: 09/18/18 09:26 Dose: 25 mg Mineral Oil/White Petrolatum (Eucerin Cream) 0 gm TOP BIDPRN PRN PRN Reason: Dry Skin Miscellaneous Medication (Pharmacy To Dose) 1 each IVPB PRN PRN PRN Reason: SSSI Nifedipine (Procardia Xl) 90 mg PO DAILY [facility] Last Admin: 09/18/18 09:26 Dose: 90 mg Paroxetine HCl (Paxil) 40 mg PO DAILY [facility] Last Admin: 09/18/18 09:26 Dose: 40 mg Polyethylene Glycol (Miralax) 17 gm PO DAILY PRN PRN Reason: Constipation Senna/Docusate Sodium (Senokot S) 2 tab PO BID [facility] Last Admin: 09/18/18 09:29 Dose: Not Given Tramadol HCl (Ultram) 50 mg PO TID [facility] Last Admin: 09/18/18 09:27 Dose: 50 mg Vitamin B Complex/Vit C/Folic Acid (Nephro-Chika Tablet) 1 tab PO DAILY [facility] Last Admin: 09/18/18 09:26 Dose: 1 tab
[2018-09-18] MEDS: Cyclobenzaprine 10 MG TAB PO SCH (20:14)
[2018-09-19] MEDS: HYDROcodone/Acetaminophen 5/325 mg Tablet PO PRN ×2 (06:34→11:24)
[2018-09-19 07:23] VITALS: BP 158/77; TEMP 98.4
[2018-09-19] MEDS: Gabapentin 300 MG CAP PO SCH (08:37)
[2018-09-19] MEDS: Acetaminophen 325 MG TAB PO SCH (08:37)
[2018-09-19] MEDS: NIFEdipine XL 90 MG TAB PO SCH (08:38)
[2018-09-19] MEDS: Folic Acid/Vit B Comp W-C PO SCH (08:38)
[2018-09-19] MEDS: Clopidogrel Bisulfate 75 MG TAB PO SCH (08:38)
[2018-09-19] MEDS: PARoxetine 20 MG TAB PO SCH (08:38)
[2018-09-19] MEDS: Lisinopril 20 MG TAB PO SCH (08:38)
[2018-09-19] MEDS: Aspirin Chewable 81 MG TAB PO SCH (08:39)
[2018-09-19] MEDS: traMADol HCl 50 MG TAB PO SCH (08:39)
[2018-09-19] MEDS: Senokot S 8.6-50 MG TAB PO SCH (08:40)
[2018-09-19] MEDS: Atorvastatin Calcium 10 MG TAB PO SCH (08:40)
--- NOTE | 2018-09-19 14:12 | DIS ---
DATE OF ADMISSION: 09/14/2018 DATE OF DISCHARGE: 09/19/2018 PRIMARY CARE PROVIDER: Jeimy Mccormick MD DISCHARGE DIAGNOSES: 1. Right knee effusion. 2. Hypokalemia. CONDITION OF PATIENT ON THE DAY OF DISCHARGE: Stable. I assessed Ms. Pedraza on the day of discharge. She denies any chest pain or shortness of breath. Right knee pain is better. Vital signs are stable. S1 and S2 are heard, regular. Lungs are clear to auscultation bilaterally. CONSULTATIONS DURING THIS HOSPITALIZATION: Orthopedics, Vitor Menchaca MD DISCHARGE MEDICATIONS: 1. Aspirin 81 mg daily. 2. Clonidine 0.1 mg tablet as needed. 3. Plavix 75 mg daily. 4. Cyclobenzaprine 5 mg at bedtime. 5. Ferrous gluconate 256 mg daily. 6. Gabapentin 600 mg 3 times a day. 7. Lisinopril 20 mg 2 times a day. 8. Lovastatin 40 mg daily. 9. Metoprolol succinate 25 mg daily. 10. Procardia XL 90 mg daily. 11. Paroxetine 40 mg daily. 12. Vitamin B complex 1 capsule daily. 13. Tramadol 50 mg every 6 hours as needed. HOSPITAL COURSE: Ms. Pedraza is a pleasant 73-year-old lady, who was admitted to [facility] on September 14, 2018, for right knee pain and swelling secondary to right knee effusion. She was seen by Orthopedic Surgery Service. She underwent arthrocentesis, withdrawal of red-tinged fluid. At the time of this dictation, cultures are pending, both of synovial fluid and blood. She is advised to follow up with her primary care provider for final culture report. She was initially started on antibiotics, which were subsequently discontinued. She continued to do well. She is being discharged to [facility]. Many thanks for allowing me to participate in your patient's care. Please feel free to contact me with any questions or concerns. DISCHARGE DESTINATION: [facility]. TOTAL AMOUNT OF TIME SPENT COORDINATING THIS DISCHARGE: 32 minutes. Job ID: [id number]
== END 2018-09-19 14:40 | disposition home or self-care (01) | DRG 566 ==
LOC: ERS 12:51 → T4-A 20:13
PROVIDERS: ADMIT Emergency Medicine; ATTEND Emergency Medicine
PROC: 0S9C3ZX Drainage of Right Knee Joint, Percutaneous Approach, Diagnostic (ICD-10-PCS; principal; 2018-09-14)
DX: M25.461 Effusion, right knee (principal); E03.9 Hypothyroidism, unspecified; N18.2 Chronic kidney disease, stage 2 (mild); I12.9 Hypertensive chronic kidney disease with stage 1 through stage 4 chronic kidney disease, or unspecified chronic kidney disease; E87.6 Hypokalemia; E83.42 Hypomagnesemia; F32.9 Major depressive disorder, single episode, unspecified
CPT/HCPCS: 36415; 71045; 80048; 80053; 81003; 82945; 83735; 83880; 84100; 84157; 84484; 85025; 85060; 85379; 86140; 87040; 87070; 87205; 89051; 89060; 96365; 96367; 96375; A4353; J1650; J1885; J2001; J2270; J2543; J3010; J3370; J3475; J7050

== ENCOUNTER 2018-12-19 12:12 | Outpatient (CLI) | payer MEDICARE, MEDICAID ==
[2018-12-19 13:13] LABS: Estimated GFR-MDRD - POC Greater than 90
--- NOTE | 2018-12-19 15:16 | MRI ---
MRI RIGHT THIGH WITH AND WITHOUT IV CONTRAST: DATE: 12/19/2018. PROVIDED CLINICAL HISTORY: Mass of right thigh, location not provided. FINDINGS: Patient motion and susceptibility artifact related to postoperative change involving ORIF of right hi p fracture limit evaluation. Comparison is made with the radiographs performed 12/14/2018. There is a somewhat circumscribed, some what mass-like area of increased signal intensity on fluid-sensitive sequences and probably isointens e to skeletal muscle on T1 weighted sequences involving the deep aspects of the vastus musculature sl ightly medially in the region of the distal femoral metadiaphyseal region. This corresponds to an ar ea of ossification radiographically. The MRI and radiographic appearance is most compatible with het erotopic ossification. Regional marrow and muscular signal unaffected by metallic susceptibility art ifact appears otherwise unremarkable. IMPRESSION: Limited study as described above. Signal alteration involving the distal vastus musculature correspo nding to the area of ossification seen on radiographs presumably reflects heterotopic ossification. Radiographic followup is recommended. POS: Juan Manuel
== END 2018-12-19 12:13 | disposition home or self-care (01) ==
LOC: BICMRI 12:12
PROVIDERS: ATTEND Orthopaedic Surgery
DX: R22.41 Localized swelling, mass and lump, right lower limb (principal); Z98.890 Other specified postprocedural states
CPT/HCPCS: 82565

== ENCOUNTER 2019-02-02 05:50 | Outpatient (CLI) | payer MEDICARE, MEDICAID ==
[2019-02-02 14:56] LABS: #Eosinphils 0.1 thou/uL (0.0-0.7); #Lymphocytes 1.9 thou/uL (1.20-3.40); #Monocytes 0.8 thou/uL (0.11-0.59); #Neutrophils 5.6 thou/uL (1.40-6.50); %Basophils 0.2 % (0.0-1.0); %Eosinophils 1.4 % (0.0-10.0); %Lymphocytes 22.3 % (21.0-51.0); %Monocytes 9.1 % (0.0-10.0); %Neutrophils 66.9 % (42.0-75.0); Hemoglobin 12.3 g/dL (12.0-16.0); Mean Corpuscular HGB CONC 32.4 g/dL (32.0-36.0); Mean Corpuscular Hemoglobin 29.8 pg (27.0-31.0); Platelet Count 370 thou/uL (130-400); RBC Distribution Width 14.4 % (11.5-14.5); Red Blood Cell (RBC) Count 4.14 mill/uL (4.20-5.40); White Blood Cell (WBC) Count 8.4 thou/uL (4.8-10.8)
[2019-02-02 15:01] LABS: Prothrombin Time 13.3 SEC (12.0-14.7)
[2019-02-02 15:06] LABS: Anion Gap 12 mmol/L (10-20); BUN (Urea Nitrogen) 12 mg/dL (9.8-20.1); Calc. Creatinine Clearance 0 mL/min (70-130); Calcium 9.9 mg/dL (7.8-10.44); Carbon Dioxide 27 mmol/L (23-31); Chloride 106 mmol/L (98-107); Estimated GFR-MDRD Greater than 90; Glucose 106 mg/dL (83-110); Potassium 4.2 mmol/L (3.5-5.1); Sodium 141 mmol/L (136-145)
[2019-02-02 16:59] LABS: Bilirubin Negative (Negative); Blood, Urine 1+ (Negative); Clarity Turbid (Clear); Glucose, Urine (Dipstick) Normal (Negative); Leukocyte 500 Leu/uL (Negative); Nitrite Negative (Negative); Protein, Urine (Dipstick) Negative (Neg-Trace); RBC/HPF 21-50 HPF (0-3); Urobilinogen Normal mg/dL (Less than 2); WBC/HPF Greater than 50 HPF (0-3)
[2019-02-02 17:13] LABS: Bacteria/HPF 4+ HPF (None Seen)
== END 2019-02-02 05:51 | disposition home or self-care (01) ==
LOC: LABBT 05:50
PROVIDERS: ATTEND Orthopaedic Surgery
DX: Z01.812 Encounter for preprocedural laboratory examination (principal); M16.51 Unilateral post-traumatic osteoarthritis, right hip
CPT/HCPCS: 80048; 81001; 85025; 85610; 87081

== ENCOUNTER 2019-02-02 15:00 | Inpatient (IN) | payer MEDICARE, MEDICAID ==
[2019-02-02 13:01] VITALS: BMI 22.8
[2019-02-14] MEDS ORDERED: Midazolam HCl 2 mg/2 ml Vial ONE ×2 (08:00→10:02)
[2019-02-14] MEDS ORDERED: Fentanyl 100 MCG/2 ML VIAL ONE ×3 (08:00→13:41)
[2019-02-14] MEDS ORDERED: ceFAZolin Sodium (SDC) 2 GM/100 ML BAG ONE (08:01)
[2019-02-14] MEDS ORDERED: Tranexamic Acid 1,000 MG/10 ML VIAL ONE (08:01)
[2019-02-14] MEDS ORDERED: Sodium Chloride 0.9% 100 ML ONE (08:31)
[2019-02-14] MEDS ORDERED: Acetaminophen 500 MG TAB PO PRN (10:55)
[2019-02-14] MEDS ORDERED: Promethazine HCl 25 MG/ML VIAL IM PRN ×3 (11:00→13:43)
[2019-02-14] MEDS ORDERED: HYDROcodone/Acetaminophen 5/325 mg Tablet PO PRN ×2 (11:00)
[2019-02-14] MEDS ORDERED: Ondansetron PF 4 MG/2 ML Vial IVP PRN ×3 (11:00→13:43)
[2019-02-14] MEDS ORDERED: Naloxone HCl 0.4 mg/ml Vial IVP PRN (11:00)
[2019-02-14] MEDS ORDERED: Fentanyl 5 mcg/Bup 0.075% Cadd 100 ML EPIDURAL SCH (11:00)
[2019-02-14] MEDS ORDERED: diphenhydrAMINE 50 MG/ML VIAL IM PRN (11:00)
[2019-02-14] MEDS ORDERED: Bupivacaine 0.25% 10 ML VIAL EPIDURAL PRN (11:00)
[2019-02-14] MEDS ORDERED: Hydrocerin (Eucerin) Cream 120 gm Jar TOP PRN (11:00)
[2019-02-14] MEDS ORDERED: Naloxone HCl 0.4 mg/ml Vial IV PRN ×2 (11:00→13:43)
[2019-02-14] MEDS ORDERED: traMADol HCl 50 MG TAB PO PRN ×3 (11:00→12:57)
[2019-02-14] MEDS ORDERED: diphenhydrAMINE 50 MG/ML VIAL IVP PRN (11:00)
[2019-02-14] MEDS ORDERED: Zolpidem Tartrate 5 MG TAB PO PRN ×3 (11:00→13:43)
[2019-02-14] MEDS ORDERED: Promethazine HCl 25 MG SUPP PR PRN (11:00)
[2019-02-14] MEDS ORDERED: diphenhydrAMINE 25 MG CAP PO PRN ×3 (11:00→13:43)
[2019-02-14] MEDS ORDERED: ePHEDrine/0.9% NaCl/PF SYRINGE 50 mg/10 ml ONE (11:20)
[2019-02-14] MEDS ORDERED: PHENYLEPHRINE-NS 100 MCG/ML 10 ML SYRINGE ONE (12:31)
[2019-02-14] MEDS ORDERED: Rocuronium Bromide 10 MG/ML (10ML VIAL) ONE (12:31)
[2019-02-14] MEDS ORDERED: ePHEDrine 50 MG/ML VIAL ONE (12:31)
[2019-02-14] MEDS ORDERED: Glycopyrrolate 0.2 MG/ML 5 ML SYRINGE ONE (12:31)
[2019-02-14] MEDS ORDERED: HYDROcodone/Acetaminophen 10/325 mg Tablet PO PRN ×2 (12:57)
[2019-02-14] MEDS ORDERED: Vancomycin HCl 1 GM in Premix Bag 1 BAG IVPB SCH (12:57)
[2019-02-14] MEDS ORDERED: CEFAZOLIN 2 GM, IV Admixture Fee-Chemo 1 UNITS in Sodium Chloride 0.9% 100 ML IVPB SCH ×2 (12:57→16:00)
[2019-02-14] MEDS ORDERED: Acetaminophen 325 MG TAB PO PRN (12:57)
[2019-02-14] MEDS ORDERED: Fentanyl 100 MCG/2 ML VIAL SLOW IVP PRN ×2 (12:57)
[2019-02-14] MEDS ORDERED: Meperidine HCl/PF 25 MG/ML VIAL ONE (13:12)
[2019-02-14] MEDS ORDERED: diphenhydrAMINE 50 MG/ML VIAL IM/IV PRN (13:43)
[2019-02-14] MEDS ORDERED: fentaNYL Citrate/PF 2,000 MCG in Sodium Chloride 0.9% 60 ML IV PRN (13:43)
--- NOTE | 2019-02-14 14:01 | RAD ---
EXAM: XR Hip Rt 2-3 View PROVIDED CLINICAL HISTORY: Postop COMPARISON: None FINDINGS: Postoperative changes of right hip arthroplasty are demonstrated. No evidence for fracture or other a cute osseous abnormality. Postoperative gas is demonstrated. Vascular calcifications are seen. IMPRESSION: As above.
--- NOTE | 2019-02-14 14:56 | OP ---
DATE OF PROCEDURE: 02/14/2019 PREOPERATIVE DIAGNOSIS: Failure of open reduction and internal fixation of right femoral neck fracture. POSTOPERATIVE DIAGNOSIS: Failure of open reduction and internal fixation of right femoral neck fracture. PROCEDURES PERFORMED: 1. Conversion of open reduction and internal fixation of right femoral neck to total hip arthroplasty. DANCE COACH: Stuart Lagunas PA-C ANESTHESIOLOGIST: Luis Scott CRNA ANESTHESIA: The patient received a general endotracheal intubation with an epidural. ESTIMATED BLOOD LOSS: 200 mL. TOURNIQUET TIME: None. IMPLANTS: [place] 46 mm PSL with a zero 36 mm liner and size 2 Accolade II stem with a 36 mm +0 anatomic metal femoral head. ANTIBIOTICS: Ancef 2 g, vancomycin 1 g, TXA 1 g. COMPLICATIONS: None. HISTORY OF PRESENT ILLNESS: Ms. Pedraza is a 73-year-old female, status post fall, history of chronic pain use as well as history of dementia. She is currently in a skilled facility. She is a minimal ambulator. She transfers at best only. She had screws that were passed through her femoral head. She has failed conservative management and continued to have pain. I discussed with family the risks and benefits of right total hip and conversion from ORIF to total hip. They understood the risks and benefits, including pain, scar, bleeding, infection, damage to vital structures, decreased range of motion or strength, need for further surgeries, failure of procedure, continued pain despite surgical intervention, loss of life or limb, and blood clot. The patient's family understood that dementia will be slightly increased postoperatively. They understood these risks, benefits and elected to proceed. DESCRIPTION OF PROCEDURE: Time-out was performed designating the patient's right lower extremity as the operative site based on site, consents, and marking. After time-out, the patient's right lower extremity was prepped and draped in sterile fashion. A lateral incision was made down through skin. We exposed the IT band. We started first by finding 2 of the screws posterolaterally through our incision, which we got down to the IT band. We split the IT band. We then found the screws and backed them out. The third one was difficult to find and bury. Therefore, we did our gluteus medius and minimus tenotomy coming down to expose the capsule, T 'd our capsule, made our cut, found the screw, backed it out and then removed it, removing a total of 3 screws. We then cut our neck again and found the patient' s acetabulum. She was riding up laterally and short. We exposed, took down a little transverse acetabular ligament, placed our reamer, took down the scar within the fovea, reamed up to a size 46 and placed a 46 mm cup. We had good overall fixation. We liked the version and inclination as well as anteversion. We then placed a zero poly liner. We then moved onto the patient's neck. We had to recut the neck after our initial cut to have a better cut. We then broached from a 0 to 1 to 2. We used a calcar planer and set on the 2 to 3. It was too difficult to get down. We placed a 2 into position and held in position. We then reduced with a trial with a - 5. We overall liked this, but we placed our final stem that had been somewhat buried, so we chose neutral position and reduced the hip. The patient had good flexion arc range of motion with no signs of impingement, was able to sit in a sitting position with a good position and overall alignment of her cuff. We then washed and closed the gluteus minimus and medius with 2-0 Vicryl. We then closed the IT band with #2 Vicryl and 2 Stratafix. We closed the subcu with 0 Stratafix, 2-0 Stratafix, and glue. The patient will be admitted postop. We will follow in-house. The patient will likely only transfer and likely not do much walking given her minimal mobility. We will give her a period of time to rest and then we will progress the weightbearing over time. Job ID: [id number] [facility]
--- NOTE | 2019-02-14 15:27 | HP ---
HISTORY OF PRESENT ILLNESS: Ms. Pedraza is a 73-year-old female, who presents with right hip pain. The patient has history of a right hip fracture treated in the [facility] in April 2018. She slipped on the floor. The patient has severe pain with even sit or resting in a wheelchair. She has not been ambulating since that time. She is a poor historian. The patient's [id number] is at the bedside. I had previously conversation with the patient's daughter and son. I discussed the evaluation of her right thigh as well as her right hip. The patient's pain can be severe. The patient has a history of chronic pain abuse per family's report. Denies numbness or tingling currently. PAST MEDICAL HISTORY: Cerebral infarction, osteoarthritis, hypertension, hypothyroidism, peripheral autonomic neuropathy, reflux, hyperlipidemia, and depression. PAST SURGICAL HISTORY: Previous open reduction and internal fixation of her right hip. MEDICATIONS: Include; 1. Aspirin. 2. Clonidine. 3. Clopidogrel. 4. Cyclobenzaprine. 5. Iron. 6. Hydrocodone. 7. Lisinopril. 8. Metoprolol. 9. Nifedipine. 10. Paroxetine. 11. Pregabalin. 12. Rivastigmine. 13. Simvastatin. 14. Tramadol. 15. Vitamin D. ALLERGIES: THE PATIENT HAS NO KNOWN DRUG ALLERGIES. SOCIAL HISTORY: The patient denies tobacco, alcohol, or drug use. Currently living in a [facility] facility. PHYSICAL EXAMINATION: VITAL SIGNS: The patient's vitals, afebrile and stable. GENERAL: Alert and oriented female, in no acute distress. EXTREMITIES: Right lower extremity shows at least 1 to 2 cm pain with internal and external rotation of her hip. . She ambulates with a wheelchair. The patient has post-traumatic arthritis of her right hip, status post failure of screws, distal thigh. IMPRESSION: 1. Right hip post-traumatic osteoarthritis. 2. History of dementia. 3. History of chronic pain. 4. History of cerebral infarction. 5. Hypertension. 6. peripheral neuropathy. 7. Reflux. 8. Hyperlipidemia. 9. Depression. ASSESSMENT AND PLAN: The patient will be taken to the OR for removal of screws and total hip arthroplasty. I discussed with the family that she has not been ambulating for over a year and likely will not ambulate long distances. She might be able to ambulate as time goes on, but this is mainly palliative for pain control, resting pain control while in a wheelchair. I discussed the risks and benefits of the surgery to include pain, scar, bleeding, infection, damage to vital structures, decreased range of motion and strength, fracture above or below the stem, loss of life or limb. I discussed that she would have phase, which her dementia would increase, but would improve after the anesthetic. She will need to go back to [facility] postop. She received vancomycin, Ancef, and TXA preoperatively. The patient's family and the patient were in agreement. She will have difficult pain control given her chronic history of pain management. She understand these risks and benefits and elected to proceed. Job ID: [id number] MTDD
[2019-02-14] MEDS: Dextrose 5 %-0.45 % NaCl 1,000 ML IV SCH ×2 (17:04→23:36)
[2019-02-14] MEDS: CEFAZOLIN 2 GM, IV Admixture Fee-Chemo 1 UNITS in Sodium Chloride 0.9% 100 ML IVPB SCH (18:32)
[2019-02-14] MEDS: Acetaminophen 1,000 MG in Premix Bag 1 BAG IVPB SCH ×2 (18:32→23:25)
[2019-02-14] MEDS ORDERED: NIFEdipine XL 30 MG TAB PO PRN (22:30)
[2019-02-15] MEDS: CEFAZOLIN 2 GM, IV Admixture Fee-Chemo 1 UNITS in Sodium Chloride 0.9% 100 ML IVPB SCH (02:11)
[2019-02-15 03:15] LABS: Bilirubin Negative (Negative); Blood, Urine Negative (Negative); Clarity Clear (Clear); Glucose, Urine (Dipstick) Normal (Negative); Leukocyte Negative Leu/uL (Negative); Nitrite Negative (Negative); Protein, Urine (Dipstick) 10 mg/dL (Neg-Trace); RBC/HPF 0-3 HPF (0-3); Squamous Epithelial None Seen HPF (0-3); Urobilinogen Normal mg/dL (Less than 2); WBC/HPF 0-3 HPF (0-3)
[2019-02-15 03:16] LABS: Bacteria/HPF None Seen HPF (None Seen)
--- NOTE | 2019-02-15 03:24 | CON ---
DATE OF CONSULTATION: 02/14/2019 PRIMARY CARE DOCTOR: Jeimy Mccormick MD. PRIMARY STEAM BOX TENDER: Dr. Guzmán. REASON FOR CONSULTATION: Medical management. HISTORY OF PRESENT ILLNESS: The patient is a 73-year-old female with hypertension, hypothyroidism, history of CVA, currently residing at [facility], underwent total right hip arthroplasty earlier today. Hospitalist Team was consulted for medical management. The patient denies significant pain. No chest pain, shortness of breath, palpitations reported. According to the RN, patient has some confusion. No fever or chills reported. She was recently evaluated by Cardiology as outpatient. A stress test was negative. Plavix was discontinued 5 days prior to the surgery. Again, patient is a poor historian. No family at the bedside. PAST MEDICAL HISTORY: 1. History of cerebrovascular accident. 2. Hypertension. 3. Hypothyroidism. 4. Peripheral neuropathy. 5. Gastroesophageal reflux disease. 6. Hyperlipidemia. 7. Depression. 8. Degenerative joint disease. 9. Gait imbalance. 10. Dementia. PAST SURGICAL HISTORY: 1. Right femur repair. 2. Back surgery. ALLERGIES: NO KNOWN DRUG ALLERGIES. CURRENT HOME MEDICATIONS: 1. Aspirin 81 mg daily. 2. Clonidine as needed. 3. Plavix 75 mg daily. It was discontinued 5 days before the surgery. 4. Cyclobenzaprine 5 mg at bedtime. 5. Ferrous gluconate one tablet daily. 6. [place] as needed. 7. Lisinopril 20 mg b.i.d. 8. Toprol-XL 25 mg daily. 9. Procardia XL 90 mg daily. 10. Paxil 40 mg daily. 11. Lyrica 75 mg b.i.d. 12. Exelon patch 1.5 mg b.i.d. 13. Zocor 20 mg daily. 14. Vitamin B complex daily. 15. Tramadol as needed. SOCIAL HISTORY: The patient currently resides at [facility]. The son and the daughter are the DPOA. No current use of smoking, alcohol, or drug use. FAMILY HISTORY: Significant for malignancy per previous records. REVIEW OF SYSTEMS: Limited due to current cognitive status. PHYSICAL EXAMINATION: VITAL SIGNS: Temperature 99.4, pulse rate of 106, respirations 20, blood pressure 159/64, O2 saturation 95% on room air. GENERAL: 73-year-old female, in no apparent distress. Appears comfortable. HEENT: Head, atraumatic and normocephalic. Sclerae anicteric. Moist mucous membranes. No oral lesion. NECK: Supple. No JVD appreciated. No carotid bruit. LUNGS: Clear to auscultation bilaterally. No wheezing, rales, or rhonchi. HEART: S1, S2 present. Regular rate and rhythm. No rubs or gallops appreciated. 2/6 systolic murmur over the mitral area. ABDOMEN: Soft, nontender. Bowel sounds present. No rebound or guarding. EXTREMITIES: No edema or calf tenderness. NEUROLOGY/PSYCHIATRY: Limited due to current cognitive status. The patient is moving all of her extremities on verbal command. SKIN: Warm and dry. LYMPH NODES: No palpable lymph nodes in the neck. PERIPHERAL VASCULAR: Radial pulses palpable bilaterally. MUSCULOSKELETAL: No joint swelling or tenderness. LABORATORY FINDINGS: Recent labs showed WBC 8.4 with hemoglobin 12.3, hematocrit 38.1, platelet of 370. PT/INR was normal. Chemistry showed sodium 141, potassium 4.2, chloride 106, bicarb 27, BUN 12, creatinine 0.64. Urinalysis showed greater than 50 wbc's with 4+ bacteria on February 02, 2019. X-ray of the hip showed postoperative changes of right hip arthroplasty. EKG by my review showed sinus rhythm. IMPRESSION: 1. Status post right hip arthroplasty. 2. Urinary tract infection 2 weeks ago. 3. Dementia. 4. Hypothyroidism. 5. Hypertension. 6. Hyperlipidemia. 7. Depression, mild, stable. 8. Chronic kidney disease stage 2. 9. Degenerative joint disease. PLAN: Pain management per Anesthesia Service. We will continue incentive spirometry. We will resume lisinopril and metoprolol with holding parameters. We will change Procardia XL to 30 mg b.i.d. with holding parameters. Continue Paxil, Lyrica, Exelon patch along with statins. We will recheck UA to confirm the patient has UTI prior to starting antibiotics. We will recheck labs in a.m. Thank you for this consultation. We will discuss the plan with the family when they arrive. Job ID: [id number]
[2019-02-15] MEDS: Acetaminophen 1,000 MG in Premix Bag 1 BAG IVPB SCH ×2 (05:17→11:53)
[2019-02-15] MEDS: Dextrose 5 %-0.45 % NaCl 1,000 ML IV SCH ×2 (05:25→20:06)
[2019-02-15 05:35] LABS: Hemoglobin 9.5 g/dL (12.0-16.0); Mean Corpuscular Volume 91.1 fL (78.0-98.0); Mean Platelet Volume 8.2 fL (7.4-10.4); Platelet Count 304 thou/uL (130-400); RBC Distribution Width 13.6 % (11.5-14.5); Red Blood Cell (RBC) Count 3.06 mill/uL (4.20-5.40); White Blood Cell (WBC) Count 14.7 thou/uL (4.8-10.8)
[2019-02-15 06:06] LABS: Anion Gap 12 mmol/L (10-20); BUN (Urea Nitrogen) 6 mg/dL (9.8-20.1); Calc. Creatinine Clearance 86 mL/min (70-130); Calcium 8.4 mg/dL (7.8-10.44); Carbon Dioxide 23 mmol/L (23-31); Chloride 102 mmol/L (98-107); Estimated GFR-MDRD Greater than 90; Glucose 118 mg/dL (83-110); Magnesium 1.3 mg/dL (1.6-2.6); Sodium 134 mmol/L (136-145)
[2019-02-15 06:20] LABS: Potassium 2.9 mmol/L (3.5-5.1)
[2019-02-15] MEDS ORDERED: Magnesium Sulfate 4 GM in Sodium Chloride 0.9% 250 ML 250 ML IVPB SCH (06:30)
[2019-02-15] MEDS: Pregabalin 75 MG CAP PO SCH ×2 (08:39→20:21)
[2019-02-15] MEDS: Aspirin 81 mg Enteric Coated Tablet PO SCH (08:39)
[2019-02-15] MEDS: Multivitamin W/ Minerals 1 TAB PO SCH (08:39)
[2019-02-15] MEDS: Senokot S 8.6-50 MG TAB PO SCH ×2 (08:39→20:07)
[2019-02-15] MEDS: Rivastigmine 1.5 MG CAP PO SCH ×2 (08:43→20:07)
[2019-02-15] MEDS: Ferrous Gluconate 324 MG TAB PO SCH ×2 (08:43→17:00)
[2019-02-15] MEDS: Lisinopril 10 MG TAB PO SCH ×2 (08:43→20:07)
[2019-02-15] MEDS: Ketorolac Tromethamine 30 MG/ML VIAL IVP PRN (14:14)
--- NOTE | 2019-02-15 14:48 | PDOC.HOSPP ---
- Subjective Encounter Date: 02/15/19 Encounter Time: 08:20 Subjective: Pt seen for followup re: hypertension. No complaints, feels well. - Objective Vital Signs & Weight: Vital Signs (12 hours) Temp Pulse Resp BP Pulse Ox 02/15/19 11:07 99.4 F 96 20 129/61 96 02/15/19 08:25 98.7 F 95 16 142/85 H 97 02/15/19 04:00 98.8 F 101 H 18 158/68 H 93 L Weight Admit Weight 142 lb Weight 142 lb I&O: 02/14/19 02/15/19 02/16/19 06:59 06:59 06:59 Intake Total 2150 Output Total 1350 Balance 800 Result Diagrams: 02/15/19 04:22 02/15/19 04:22 Additional Labs: labs and MARs reviewed by ROS - Review of Systems Cardiovascular: denies: chest pain, palpitations, orthopnea, paroxysmal noc. dyspnea, edema, light headedness Gastrointestinal: denies: nausea, vomitting, abdominal pain, diarrhea, constipation, melena, hematochezia - Medication Medications: Active Medications Generic Name Dose Route Start Last Admin Trade Name Freq PRN Reason Stop Dose Admin Aspirin 81 mg 02/15/19 09:00 02/15/19 08:39 Ecotrin PO 81 mg DAILY CHAPARRO Administration Ferrous Gluconate 324 mg 02/15/19 08:00 02/15/19 08:43 Fergon PO 324 mg BID-WM CHAPARRO Administration Dextrose/Sodium Chloride 1,000 mls @ 100 mls/hr 02/14/19 12:57 02/15/19 05:25 D5 1/2 Ns IV 1,000 mls .Q10H CHAPARRO Administration Iron/Minerals/Multivitamins 1 tab 02/15/19 09:00 02/15/19 08:39 Theragran M PO 1 tab DAILY CHAPARRO Administration Ketorolac Tromethamine 15 mg 02/14/19 12:57 02/15/19 14:14 Toradol IVP 02/19/19 12:58 15 mg Q8HR PRN Administration Pain Lisinopril 10 mg 02/15/19 09:00 02/15/19 08:43 Zestril PO 10 mg BID CHAPARRO Administration Metoprolol Succinate 25 mg 02/15/19 09:00 08/14/19 08:43 Toprol Xl PO 25 mg DAILY CHAPARRO Administration Potassium Chloride 20 meq 02/15/19 12:00 02/15/19 14:15 Klor-Con PO 02/15/19 17:01 20 meq TID-WM CHAPARRO Administration Pregabalin 75 mg 02/15/19 09:00 02/15/19 08:39 Lyrica PO 75 mg BID CHAPARRO Administration Rivastigmine 1.5 mg 02/15/19 09:00 02/15/19 08:43 Exelon PO 1.5 mg BID CHAPARRO Administration Senna/Docusate Sodium 2 tab 02/15/19 09:00 02/15/19 08:39 Senokot S PO 2 tab BID CHAPARRO Administration - Exam NAD Eye: anicteric sclera ENT: normocephalic atraumatic Neck: supple Heart: RRR, no rubs Respiratory: CTAB Gastrointestinal: soft, non-tender Extremities: no edema Skin: normal turgor Musculoskeletal - other findings: s/p R hip surgery Psychiatric: normal affect, normal behavior Hosp A/P (1) Hypokalemia Code(s): E87.6 - HYPOKALEMIA Status: Acute (2) Dyslipidemia Code(s): E78.5 - HYPERLIPIDEMIA, UNSPECIFIED Status: Chronic (3) Dementia Code(s): F03.90 - UNSPECIFIED DEMENTIA WITHOUT BEHAVIORAL DISTURBANCE Status: Chronic (4) Hypertension Code(s): I10 - ESSENTIAL (PRIMARY) HYPERTENSION Status: Chronic - Plan plan discussed w/ family, PT/OT, out of bed/ambulate Replace potassium, recheck potassium level. Add PRN IV hydralazine for blood pressure spikes. Monitor vital signs and titrate antihypertensives as needed. Continue statin. Continue Exelon for dementia.
[2019-02-15] MEDS ORDERED: hydrALAZINE 20 MG/ML VIAL SLOW IVP PRN (15:03)
[2019-02-15] MEDS ORDERED: Acetaminophen 325 MG TAB PO PRN (16:15)
[2019-02-15] MEDS: Atorvastatin Calcium 10 MG TAB PO SCH (20:07)
[2019-02-16 04:17] LABS: Hemoglobin 8.5 g/dL (12.0-16.0); Mean Corpuscular HGB CONC 33.7 g/dL (32.0-36.0); Mean Corpuscular Hemoglobin 31.1 pg (27.0-31.0); Mean Corpuscular Volume 92.1 fL (78.0-98.0); Mean Platelet Volume 7.8 fL (7.4-10.4); Platelet Count 284 thou/uL (130-400); RBC Distribution Width 13.7 % (11.5-14.5); Red Blood Cell (RBC) Count 2.73 mill/uL (4.20-5.40); White Blood Cell (WBC) Count 12.7 thou/uL (4.8-10.8)
[2019-02-16 04:43] LABS: Anion Gap 9 mmol/L (10-20); BUN (Urea Nitrogen) 5 mg/dL (9.8-20.1); Calc. Creatinine Clearance 94 mL/min (70-130); Calcium 8.4 mg/dL (7.8-10.44); Carbon Dioxide 24 mmol/L (23-31); Chloride 103 mmol/L (98-107); Estimated GFR-MDRD Greater than 90; Glucose 116 mg/dL (83-110); Magnesium 1.9 mg/dL (1.6-2.6); Potassium 3.1 mmol/L (3.5-5.1); Sodium 133 mmol/L (136-145)
[2019-02-16] MEDS: Dextrose 5 %-0.45 % NaCl 1,000 ML IV SCH ×3 (06:15→23:56)
[2019-02-16] MEDS: Multivitamin W/ Minerals 1 TAB PO SCH (09:33)
[2019-02-16] MEDS: Lisinopril 10 MG TAB PO SCH ×2 (09:33→20:55)
[2019-02-16] MEDS: Senokot S 8.6-50 MG TAB PO SCH ×2 (09:33→20:56)
[2019-02-16] MEDS: Pregabalin 75 MG CAP PO SCH ×2 (09:34→20:56)
[2019-02-16] MEDS: Rivastigmine 1.5 MG CAP PO SCH ×2 (09:34→20:59)
[2019-02-16] MEDS: Aspirin 81 mg Enteric Coated Tablet PO SCH (09:34)
[2019-02-16] MEDS: Ferrous Gluconate 324 MG TAB PO SCH ×2 (09:34→16:18)
[2019-02-16] MEDS: Acetaminophen 500 MG TAB PO SCH ×4 (12:30→23:40)
[2019-02-16] MEDS: Atorvastatin Calcium 10 MG TAB PO SCH (20:56)
[2019-02-17] MEDS: Ketorolac Tromethamine 30 MG/ML VIAL IVP PRN ×2 (00:02→11:05)
[2019-02-17] MEDS: Acetaminophen 500 MG TAB PO SCH ×2 (05:38→11:05)
[2019-02-17 05:51] LABS: Hemoglobin 9.7 g/dL (12.0-16.0); Mean Corpuscular HGB CONC 33.6 g/dL (32.0-36.0); Mean Corpuscular Hemoglobin 31.1 pg (27.0-31.0); Mean Corpuscular Volume 92.5 fL (78.0-98.0); Mean Platelet Volume 8.2 fL (7.4-10.4); Platelet Count 327 thou/uL (130-400); RBC Distribution Width 13.5 % (11.5-14.5); Red Blood Cell (RBC) Count 3.13 mill/uL (4.20-5.40); White Blood Cell (WBC) Count 11.3 thou/uL (4.8-10.8)
[2019-02-17] MEDS: Ferrous Gluconate 324 MG TAB PO SCH (09:11)
[2019-02-17] MEDS: Lisinopril 10 MG TAB PO SCH (09:11)
[2019-02-17] MEDS: Aspirin 81 mg Enteric Coated Tablet PO SCH (09:11)
[2019-02-17] MEDS: Multivitamin W/ Minerals 1 TAB PO SCH (09:12)
[2019-02-17] MEDS: Senokot S 8.6-50 MG TAB PO SCH (09:12)
[2019-02-17] MEDS: Pregabalin 75 MG CAP PO SCH (09:12)
[2019-02-17] MEDS: Rivastigmine 1.5 MG CAP PO SCH (11:07)
[2019-02-17 11:12] VITALS: BP 150/85; TEMP 98.8
[2019-02-17] MEDS: Dextrose 5 %-0.45 % NaCl 1,000 ML IV SCH (15:30)
[2019-02-18] MEDS ORDERED: Acetaminophen 325 MG TAB PO PRN (16:00)
== END 2019-02-17 14:30 | DRG 470 ==
LOC: SURG A 02-14 07:03 → SURG B 02-14 16:04
PROVIDERS: ADMIT Orthopaedic Surgery; ATTEND Orthopaedic Surgery
PROC: 0SR902Z Replacement of Right Hip Joint with Metal on Polyethylene Synthetic Substitute, Open Approach (ICD-10-PCS; principal; 2019-02-14)
PROC: 0QP604Z Removal of Internal Fixation Device from Right Upper Femur, Open Approach (ICD-10-PCS; 2019-02-14)
DX: T84.114A Breakdown (mechanical) of internal fixation device of right femur, initial encounter (principal); G62.9 Polyneuropathy, unspecified; F03.90 Unspecified dementia, unspecified severity, without behavioral disturbance, psychotic disturbance, mood disturbance, and anxiety; G89.29 Other chronic pain; E03.9 Hypothyroidism, unspecified; E78.5 Hyperlipidemia, unspecified; I12.9 Hypertensive chronic kidney disease with stage 1 through stage 4 chronic kidney disease, or unspecified chronic kidney disease; F32.9 Major depressive disorder, single episode, unspecified; N18.2 Chronic kidney disease, stage 2 (mild); Y83.8 Other surgical procedures as the cause of abnormal reaction of the patient, or of later complication, without mention of misadventure at the time of the procedure; Z99.3 Dependence on wheelchair; Z86.73 Personal history of transient ischemic attack (TIA), and cerebral infarction without residual deficits; Z87.440 Personal history of urinary (tract) infections
CPT/HCPCS: 36415; 80048; 81001; 83735; 85027; 86850; 86900; 86901; C1776; J0131; J0690; J1885; J2175; J2250; J3010; J3370; J3475; J3490; J7050

== ENCOUNTER 2020-09-02 13:28 | Outpatient (CLI) | payer MEDICARE, MEDICAID ==
--- NOTE | 2020-09-02 14:58 | MRI ---
MR the lumbar spine without contrast: 09/02/2020 History: Abnormal posture, lumbar stenosis with claudication COMPARISON: 08/26/2018 TECHNIQUE: Multiplanar multisequence MR images were obtained of lumbar spine without IV contrast FINDINGS: On the basis of 5 lumbar type vertebral bodies, conus medullaris terminates at [id number] level. Sagittal STIR imaging demonstrates no focal area of osseous marrow edema. Stable anterior wedge compr ession fracture at T12. T11-12: There is disc space narrowing with degenerative endplate change and disc desiccation. There i s disc bulge with mild central canal stenosis. Bilateral facet hypertrophy with no significant neural foraminal stenosis. T12-L1:Disc space narrowing with disc desiccation and disc bulge. Stable severe central canal stenosi s. Vacuum disc formation present. Bilateral facet hypertrophy with stable mild/moderate bilateral neural foraminal stenosis. L1-2:Bilateral facet hypertrophy and hypertrophy of the ligamentum flavum. There is disc space narrow ing with disc desiccation and mild disc bulge. Mild central canal stenosis. No significant neural foraminal stenosis. L2-3:Disc space narrowing with disc desiccation and mild disc bulge. Bilateral facet hypertrophy, lef t greater than right. Vacuum disc formation. Mild right and moderate left neural foraminal stenosis. Mild central canal stenosis. L3-4:Disc space narrowing with disc desiccation and vacuum disc formation. Bilateral facet hypertroph y with moderate left and mild right foraminal stenosis. Mild central canal stenosis. There is a small synovial cyst medially associated with the inferior medial aspect of the left L3-4 facet joint. L4-5:Disc space narrowing with disc desiccation, vacuum disc formation, and mild disc bulge. Bilatera l facet hypertrophy. Mild central canal stenosis. Moderate bilateral neural foraminal stenosis. L5-S1:Bilateral facet hypertrophy. Disc space narrowing with disc desiccation and mild disc bulge. Sm all superimposed central disc protrusion with mild central canal stenosis. Moderate bilateral neural foraminal stenosis, grossly unchanged. Image retroperitoneal structures demonstrateno acute findings.. IMPRESSION: Multilevel lumbar spine degenerative change as detailed above.
== END 2020-09-02 13:29 | disposition home or self-care (01) ==
LOC: SCSMRI 13:28
PROVIDERS: ATTEND Neurological Surgery
DX: M48.062 Spinal stenosis, lumbar region with neurogenic claudication (principal); M47.816 Spondylosis without myelopathy or radiculopathy, lumbar region; M47.817 Spondylosis without myelopathy or radiculopathy, lumbosacral region
CPT/HCPCS: 72148

== ENCOUNTER 2023-08-02 08:34 | Emergency (ER) | payer MEDICARE, MEDICAID ==
[2023-08-02] MEDS ORDERED: fentaNYL 50 mcg/mL 1 mL Vial ONE ×3 (08:54→11:33)
[2023-08-02 10:17] LABS: #Eosinphils 0.1 thou/uL (0.0-0.7); #Monocytes 0.7 thou/uL (0.11-0.59); #Neutrophils 7.1 thou/uL (1.40-6.50); %Basophils 0.1 % (0.0-1.0); %Eosinophils 0.6 % (0.0-10.0); %Lymphocytes 17.5 % (21.0-51.0); %Neutrophils 74.6 % (42.0-75.0); Hematocrit 37.1 % (36.0-47.0); Hemoglobin 12.3 g/dL (12.0-16.0); Mean Corpuscular HGB CONC 33.2 g/dL (32.0-36.0); Mean Corpuscular Hemoglobin 30.4 pg (27.0-31.0); Mean Corpuscular Volume 91.8 fl (78.0-98.0); Mean Platelet Volume 11.3 fL (7.4-10.4); Platelet Count 270 10x3/uL (130-400); RBC Distribution Width 13.9 % (11.5-14.5); Red Blood Cell (RBC) Count 4.04 mill/uL (4.20-5.40); White Blood Cell (WBC) Count 9.5 10x3/uL (4.8-10.8)
[2023-08-02 10:45] LABS: ALT (SGPT) 7 U/L (8-55); AST (SGOT) 10 U/L (5-34); Albumin 3.7 g/dL (3.4-4.8); Alkaline Phosphatase 76 U/L (40-110); Anion Gap 11 mmol/L (10-20); BUN (Urea Nitrogen) 9 mg/dL (9.8-20.1); Bilirubin, Total 0.5 mg/dL (0.2-1.2); Calc. Creatinine Clearance 0 mL/min (70-130); Calcium 8.8 mg/dL (7.8-10.44); Carbon Dioxide 27 mmol/L (23-31); Chloride 108 mmol/L (98-107); Estimated GFR 80; Globulin 3.1 g/dL (2.4-3.5); Glucose 111 mg/dL (83-110); Potassium 3.9 mmol/L (3.5-5.1); Protein, Total 6.8 g/dL (5.8-8.1); Sodium 142 mmol/L (136-145)
[2023-08-02 10:50] LABS: Troponin I Less than 0.010 ng/mL (< 0.028)
== END 2023-08-02 13:08 | disposition home or self-care (01) ==
LOC: ERS 08:34
DX: S42.341A Displaced spiral fracture of shaft of humerus, right arm, initial encounter for closed fracture (principal); I10 Essential (primary) hypertension; W01.0XXA Fall on same level from slipping, tripping and stumbling without subsequent striking against object, initial encounter
CPT/HCPCS: 70450; 72125; 73030; 73060; 80053; 84484; 85025; 93005; J3010; 24500; 36415; 96374; 96376